=== PATIENT | male | born 1970 | race Caucasian/White ===

== ENCOUNTER → 2016-11-30 | Outpatient (CLI) | payer BC ==
--- NOTE | 2016-11-30 18:39 | CT ---
History ankle pain. Comparison none. TECHNIQUE: Multiple axial sections were obtained from the distal tibia to the bottom of the calcaneus with no co ntrast. FINDINGS: There is hypertrophic spurring of the distal fibula as well as the medial malleolus. There is spurrin g at the anterior and posterior malleolus. There is minimal sclerosis and subchondral cystic change i n the medial dome of the talus. I see no fracture line. The subtalar joint is intact. There are moder ate plantar and Achilles calcaneal spurs. Talonavicular joint appears normal. There is some mild spur ring at the navicular cuneiform joint. I see no focal bone destruction. There is soft tissue calcific ation anterior to the ankle joint. CONCLUSION: Osteoarthritis in the ankle joint with hypertrophic spur formation. 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 Large Achilles and plantar calcaneal spurs. No a cute bony abnormality seen.
== END | disposition home or self-care (01) ==
LOC: RADCTMAIN 16:36
PROVIDERS: ATTEND Orthopaedic Surgery
DX: M19.071 Primary osteoarthritis, right ankle and foot (principal); D48.0 Neoplasm of uncertain behavior of bone and articular cartilage; M77.31 Calcaneal spur, right foot

== ENCOUNTER 2017-10-02 15:14 | Inpatient (IN) | payer BC ==
--- NOTE | 2017-10-02 15:42 | ED ---
General Adult HPI - General Chief complaint: Psychiatric Symptoms Stated complaint: Suicidal Time Seen by Provider: 10/02/17 15:20 Source: patient, RN notes reviewed Mode of arrival: ambulatory Limitations: no limitations - History of Present Illness Initial comments: This is a 47 her old male who presents emergency Department complaining of being very depressed and having suicidal thoughts over the last couple of weeks that have worsened. Patient states the stress is getting Cesar afraid he might act upon the suicidal thoughts. Patient states he once attempted suicide when he is a teenager but not since. Patient states he did go on antidepressants for about a year but has not been on them for a couple of years. Patient states pressure work and pressure at home with the finances has increased his depression. Patient states is getting so stressed she's not sure he can handle the pressure. Patient denies any physical complaints today. Patient states he does smoke. Patient denies headache patient denies numbness weakness. Patient denies lightheadedness dizziness or near syncopal episode. Patient denies any chest pain difficulty breathing or shortness of breath. Patient denies abdominal pain patient denies nausea vomiting diarrhea. Patient denies any recent injury or trauma. She denies any fever chills or cough. - Related Data Home Medications Medication Instructions Recorded Confirmed No Known Home Medications [No 10/02/17 10/02/17 Known Home Medications] Allergies Allergy/AdvReac Type Severity Reaction Status Date / Time No Known Allergies Allergy Verified 10/02/17 15:56 Review of Systems ROS Statement: Those systems with pertinent positive or pertinent negative responses have been documented in the HPI. ROS Other: All systems not noted in ROS Statement are negative. Past Medical History Past Medical History: GERD/Reflux, Hyperlipidemia, Hypertension, Syncope Additional Past Medical History / Comment(s): 06/14/15 Pt presented to [facility] ER with dizziness, lightheaded since yesterday. Driving to work today he started having tingling and discomfort L arm and mild ches discomfort below L breast. Other HX: high cholesterol but numbers have improved and pt is now off medication for this, pt states he has not been taking his blood pressure medication as he should, black out spells last episode 2008, restless leg syndrome, 01/13/15 echo showed mild mitral and tri regurg, moderate concentric L ventricular hypertrophy, L ventricular systolic function normal with EF 55-60%. History of Any Multi-Drug Resistant Organisms: None Reported Past Surgical History: Heart Catheterization, Orthopedic Surgery Additional Past Surgical History / Comment(s): ccath yrs ago-normal, vasectomy, Rt arm tendon reattached as child, rt ankle fx with surgery Past Anesthesia/Blood Transfusion Reactions: No Reported Reaction Past Psychological History: Depression Smoking Status: Current every day smoker Past Alcohol Use History: None Reported Past Drug Use History: None Reported - Past Family History Father History Unknown: Yes Mother Family Medical History: Coronary Artery Disease (CAD), Myocardial Infarction (PA ) Additional Family Medical History / Comment(s): Mother of a PA at age 61 yrs. General Exam - General Exam Comments Initial Comments: GENERAL: Patient is well-developed and well-nourished. Patient is nontoxic and well- hydrated and is in no acute distress. ENT: Neck is soft and supple. No significant lymphadenopathy is noted. Neck has full range of motion without eliciting any pain. EYES: The sclera were anicteric and conjunctiva were pink and moist. Extraocular movements were intact and pupils were equal round and reactive to light. Eyelids were unremarkable. PULMONARY: Unlabored respirations. Good breath sounds bilaterally. No audible rales rhonchi or wheezing was noted. CARDIOVASCULAR: There is a regular rate and rhythm without any murmurs gallops or rubs. ABDOMEN: Soft and nontender with normal bowel sounds. SKIN: Skin is clear with no lesions or rashes and otherwise unremarkable. NEUROLOGIC: Patient is alert and oriented x3. Cranial nerves II through XII are grossly intact. Motor and sensory are also intact. Normal speech, volume and content. Symmetrical smile. MUSCULOSKELETAL: Normal extremities with adequate strength and full range of motion. No lower extremity swelling or edema. No calf tenderness. LYMPHATICS: No significant lymphadenopathy is noted PSYCHIATRIC: Patient states he's having suicidal thoughts. Patient states he's very depressed and doesn't see a way out of his present situation. Limitations: no limitations Course Vital Signs 10/02/17 15:21 Temperature 98.6 F Pulse Rate 92 Respiratory 18 Rate Blood Pressure 181/99 O2 Sat by Pulse 100 Oximetry Medical Decision Making - Medical Decision Making EPS came down to evaluate the patient the patient signed in and they accepted him to the floor. - Lab Data Lab Results 10/02/17 Range/Units 15:47 Urine Opiates Screen Not Detected (NotDetected) Ur Oxycodone Screen Not Detected (NotDetected) Urine Methadone Screen Not Detected (NotDetected) Ur Propoxyphene Screen Not Detected (NotDetected) Ur Barbiturates Screen Not Detected (NotDetected) U Tricyclic Antidepress Not Detected (NotDetected) Ur Phencyclidine Scrn Not Detected (NotDetected) Ur Amphetamines Screen Not Detected (NotDetected) U Methamphetamines Scrn Not Detected (NotDetected) U Benzodiazepines Scrn Not Detected (NotDetected) Urine Cocaine Screen Not Detected (NotDetected) U Marijuana (THC) Screen Not Detected (NotDetected) Disposition Clinical Impression: Depression, Suicidal ideation Disposition: ADMITTED IP TO THIS HOSP Referrals: Magnus Nj DO [Primary Care Provider] - 1-2 days Time of Disposition: 18:04
[2017-10-02 16:14] LABS: Amphetamine Screen,Urine Not Detected (NotDetected); Barbiturate Screen,Urine Not Detected (NotDetected); Benzodiazepines Screen,Urine Not Detected (NotDetected); Cocaine Screen,Urine Not Detected (NotDetected); Methadone Screen, Urine Not Detected (NotDetected); Opiate Screen,Urine Not Detected (NotDetected); Oxycodone Screen, Urine Not Detected (NotDetected); Phencyclidine Screen,Urine Not Detected (NotDetected); Tricyclic Antidepressant,Urine Not Detected (NotDetected); Urn Cannabinoid Scrn Not Detected (NotDetected)
[2017-10-02] MEDS ORDERED: cloNIDine HCL 0.2 MG TAB PO STA (18:19)
[2017-10-02] MEDS ORDERED: LORazepam 1 MG TAB PO PRN (18:41)
[2017-10-02] MEDS ORDERED: ACETAMINOPHEN TAB 325 MG TAB PO PRN (18:41)
[2017-10-02] MEDS ORDERED: MAG HYDROX/AL HYDROX/SIMETH 30 ML CUP PO PRN (18:41)
[2017-10-02] MEDS ORDERED: MAGNESIUM HYDROXIDE 2,400 MG/10 ML CUP PO PRN (18:41)
[2017-10-02] MEDS ORDERED: LORazepam 2 MG/ML INJ IM PRN (18:44)
[2017-10-02] MEDS ORDERED: traZODone HCL 100 MG TAB PO PRN (19:00)
[2017-10-02] MEDS: LISINOPRIL-HCTZ 10-12.5 MG 1 EACH TAB PO SCH (21:43)
--- NOTE | 2017-10-02 21:55 | CONS ---
CONSULTATION DATE OF CONSULTATION: 10/02/2017. REASON FOR CONSULTATION: Medical management requested by Dr. Butler. CONSULTATION: This is a 47-year-old patient of Dr. Nj whose chronic stable medical conditions include GERD, hypertensive heart disease, restless leg syndrome. The patient had hyperlipidemia but lost some weight and got off the medications. The patient presents with increasing depression, suicidal ideation, not wanting to live. Decided to present to the ER. The patient does not have much of an appetite. Does not sleep too well and is admitted for further evaluation with evaluation. The patient's home medications currently not listed. The patient is gainfully employed and is a smoker. REVIEW OF SYSTEMS: CONSTITUTIONAL: None. HEENT: None. Respiratory: None. Cardiovascular: None. Gastrointestinal: None. Musculoskeletal: None. Dermatological, hematologic, lymphatic: None. Psychiatry: Depression. Neurological: Restless legs syndrome. PAST MEDICAL HISTORY: GERD, hypertensive heart disease, hypertension, restless leg syndrome and depression. PAST SURGICAL HISTORY: Cardiac catheterization years ago, vasectomy, right arm tendon reattached as a child, right ankle fracture with surgery. PSYCH HISTORY: Depression. SOCIAL HISTORY: . Smokes a pack and half for close to 30 years. Denies Any alcohol use or recreational drugs. 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 FAMILY HISTORY: Coronary artery disease. Mother at the age of 61. HOME MEDICATIONS: List unavailable. ALLERGIES: None. PHYSICAL EXAMINATION: VITAL SIGNS: Temperature 98, pulse 73, respirations 16, blood pressure 123/92, pulse ox 95% on room air. GENERAL APPEARANCE: Well built, BMI of 41.7, lying in bed, tired appearing. EYES: Pupils equal. Conjunctivae normal. HEENT: External appearance of nose and ears normal. Oral cavity normal. NECK: JVD not raised. Mass not palpable. RESPIRATORY: Effort normal. LUNGS: Fair entry. CARDIOVASCULAR: 1st and second sounds normal. No edema. ABDOMEN: Soft, nontender. Liver and spleen not palpable. LYMPHATICS: No lymph nodes palpable in the neck and axilla. PSYCHIATRY: Alert and oriented x3. Mood and affect depressed-appearing. NEUROLOGICAL: Pupils equal. Cranial nerves grossly intact. Power and sensation grossly intact. INVESTIGATIONS: Urine drug screen negative. ASSESSMENT: 1. Hypertensive heart disease. 2. Essential hypertension, uncontrolled. 3. Major depression with suicidal ideation. 4. Restless leg syndrome. 5. Morbid obesity BMI 41.7. 6. Chronic nicotine dependence, patient is a cigarette smoker. PLAN: At this point, we will start the patient on lisinopril, hydrochlorothiazide 1 tablet twice a day. If restless leg syndrome becomes an issue, we will add some Requip. The patient should see a dietitian when he leaves from here for weight loss measures. The patient is advised against smoking and will be given a nicotine patch. Thank you Dr. Butler. Copy to Dr. Nj. MERI / [place]: [id number] /
[2017-10-03] MEDS: NICOTINE 21MG/24HR PATCH TRANSDERM SCH (08:26)
[2017-10-03] MEDS: LISINOPRIL-HCTZ 10-12.5 MG 1 EACH TAB PO SCH ×2 (08:26→21:43)
[2017-10-03 08:48] LABS: Basophils % (A) 1 %; Eosinophils # (A) 0.2 k/uL (0-0.7); Eosinophils % (A) 2 %; HCT 47.1 % (39.0-53.0); HGB 16.3 gm/dL (13.0-17.5); Lymphocytes # (A) 1.6 k/uL (1.0-4.8); Lymphocytes % (A) 23 %; MCH 31.8 pg (25.0-35.0); MCHC 34.7 g/dL (31.0-37.0); MCV 91.8 fL (80.0-100.0); Mean Platelet Volume 6.4; Monocytes # (A) 0.3 k/uL (0-1.0); Monocytes % (A) 4 %; Neutrophils # (A) 4.7 k/uL (1.3-7.7); Neutrophils % (A) 68 %; Platelet Count 178 k/uL (150-450); RBC 5.13 m/uL (4.30-5.90); RDW 13.3 % (11.5-15.5); WBC 6.8 k/uL (3.8-10.6)
[2017-10-03 09:11] LABS: ALT 46 U/L (21-72); AST 23 U/L (17-59); Albumin 4.3 g/dL (3.5-5.0); Alkaline Phosphatase 123 U/L (38-126); Anion Gap 12 mmol/L; Blood Urea Nitrogen 10 mg/dL (9-20); Calcium 9.5 mg/dL (8.4-10.2); Carbon Dioxide 29 mmol/L (22-30); Chloride 100 mmol/L (98-107); Glucose 122 mg/dL (74-99); Potassium 4.1 mmol/L (3.5-5.1); Sodium 141 mmol/L (137-145); Total Bilirubin 0.8 mg/dL (0.2-1.3); Total Protein 7.1 g/dL (6.3-8.2)
[2017-10-03 09:38] VITALS: BMI 41.7
[2017-10-03] MEDS: VENLAFAXINE HCL ER 75 MG CAP PO SCH (10:07)
--- NOTE | 2017-10-03 12:23 | P.HP ---
Psychiatric H&P - . H&P Date: 10/03/17 History & Physical: IDENTIFYING DATA: The patient is a 47-year-old male admitted to the psychiatric unit voluntarily with complaints of depression and suicidal ideation HISTORY OF PRESENT ILLNESS: He described increasing feelings depression over the last several weeks culminating in difficulty functioning at work and increasing thoughts of suicide. He stated that he felt hopeless and helpless and had thoughts of using his gun to shoot himself. He confided his feelings and his thoughts to his the day before admission. He called his primary physician who referred him to our emergency department for a mental health assessment. He described classic symptoms of depression including depressed mood, feelings of guilt, thoughts of suicide, insomnia (early, middle and late), loss of interest in activities, psychomotor retardation, loss of energy and weight loss (he stated that his weight has decreased over unspecified time from 305 pounds to 274 pounds). He denied psychotic symptoms such as auditory, visual or olfactory hallucinations, ideas of reference, thought insertion etc. He denied significant anxiety symptoms including agitation, psychic anxiety and somatic anxiety. He denied gastrointestinal somatic symptoms. He acknowledges that he is depressed and recognized the need for treatment. He denied use of alcohol or drugs. He denied signs or symptoms suggestive of aziza or hypomania. He attributed depression to social stressors. He described financial problems that resulted from sick leave early in 2017. He had injured his ankle and required surgery. He has long-term disability through work but only provided 40 % of his salary. He recently learned that his federal tax return is under audit (he stated that he and his anticipated the tax refund to help cover some of the debt they incurred during his disability). He also complained about difficulties at work. 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 He denied problems in his marriage, his family or his children. On the Jaime Rating Scale for Depression his total score was 22 consistent with moderately severe symptoms of depression. PAST PSYCHIATRIC HISTORY: He denied prior psychiatric hospitalizations or outpatient mental health treatment. He described a apparent suicide attempt when he was 19 years old by overdose of Tegretol. He received emergency treatment in the ER but did not obtain mental health services. He experienced a depressive episode 3 years ago following the of his mother. His primary care provider prescribes sertraline. He took the medication for about one year and described ambivalent feelings about its effectiveness. PAST MEDICAL HISTORY: He has a history of GERD, hyperlipidemia and hypertension. ALLERGIES: NO KNOWN DRUG ALLERGIES. SUBSTANCE USE HISTORY: He denied use of alcohol or drugs. He denied a history of problems with alcohol or drugs. He has never participated in a substance abuse treatment program and denied family or friends have complained to him about his alcohol use. Tobacco use: He smokes between one half and one pack of cigarettes per day FAMILY PSYCHIATRIC/SUBSTANCE USE HISTORY: He described a strong family history of mood disorder. His mother, sister and brother have been treated for depression. 2 paternal uncles by suicide. LEGAL HISTORY: He denied history of legal problems. SOCIAL HISTORY: His born and raised in [place] by his mother and stepfather. His parents when he was 3 years old. He completed high school. He has been for 23 years. They have 4 children 3 of whom are in the household. 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 MENTAL STATUS EXAM: He presented as a casually groomed middle-aged male who looked younger than his stated age. He maintained eye contact and attended to the interview. He had poor group home but no prominent physical abnormalities. He showed psychomotor retardation but no abnormal movements. His gait was slow but steady. His speech was spontaneous with decreased rate, rhythm and volume. He had no articulation difficulties. His affect was depressed and not reactive. He denied current suicidal ideation or wishes. He denied homicidal ideation. He describes such depressive cognitions as hopelessness, helplessness and worthlessness. He ruminated about his financial and employment related problems. He did not express ideas of reference, paranoid ideation or delusional thoughts. His thinking was abstract and his associations were coherent and logical. He did not demonstrate perseverations, neologisms or blocking. He denied hallucinations and did not appear to be responding to internal stimuli. Global impression of intellect is average. He is aware of his illness and need for treatment.. STRENGTHS: Stable employment, stable housing, supportive family, good physical health. WEAKNESSES: Employment and financial stresses. IMPRESSION: He has a 47-year-old male who has a family history and personal history of depression. He presented with signs and symptoms consistent with major depressive disorder that appears to develop in the context of financial and employment stress. He had thoughts of suicide that led to his presentation to our emergency department but currently denied thoughts, intent or plan. There is no evidence of psychosis and he denied a history suggestive of aziza or hypomania. He has no history of the use of alcohol or drugs. He should be treated on an inpatient basis with a combination of psychopharmacology and multimodal therapy. He would benefit from continued outpatient mental health treatment at discharge. PRINCIPLE DIAGNOSIS: Major depressive disorder recurrent moderate, tobacco use disorder RECOMMENDATION: Admitted to the inpatient psychiatric unit due to the severity of depressive symptoms and history of suicidal ideation. Consult medicine for initial physical exam. Social work to complete initial psychosocial assessment , arrange a family meeting and have the patient's remove his hand gun from the home. Begin venlafaxine ex are 75 mg daily and titrated according to clinical response and tolerance. Encourage participation in therapeutic groups and activities. Evaluate clinical status and response to treatment daily basis. Allergies Allergy/AdvReac Type Severity Reaction Status Date / Time No Known Allergies Allergy Verified 10/02/17 21:46 Vital Signs Temp 97.7 F 10/03/17 06:26 Pulse 63 10/03/17 06:26 Resp 16 10/03/17 06:26 BP 118/66 10/03/17 06:26 Pulse Ox 95 10/02/17 18:18 Intake & Output 10/02/17 10/03/17 10/03/17 18:59 06:59 18:59 Weight 138.346 kg 124.454 kg 124.454 kg Laboratory Last Values WBC 6.8 k/uL (3.8-10.6) 10/03/17 08: RBC 5.13 m/uL (4.30-5.90) 10/03/17 08:27 Hgb 16.3 gm/dL (13.0-17.5) 10/03/17 08:27 Hct 47.1 % (39.0-53.0) 10/03/17 08:27 MCV 91.8 fL (80.0-100.0) 10/03/17 08:27 MCH 31.8 pg (25.0-35.0) 10/03/17 08:27 MCHC 34.7 g/dL (31.0-37.0) 10/03/17 08:27 RDW 13.3 % (11.5-15.5) 10/03/17 08:27 Plt Count 178 k/uL (150-450) 10/03/17 08:27 Neutrophils % 68 % 10/03/17 08:27 Lymphocytes % 23 % 10/03/17 08:27 Monocytes % 4 % 10/03/17 08:27 Eosinophils % 2 % 10/03/17 08:27 Basophils % 1 % 10/03/17 08:27 Neutrophils # 4.7 k/uL (1.3-7.7) 10/03/17 08:27 Lymphocytes # 1.6 k/uL (1.0-4.8) 10/03/17 08:27 Monocytes # 0.3 k/uL (0-1.0) 10/03/17 08:27 Eosinophils # 0.2 k/uL (0-0.7) 10/03/17 08: Basophils # 0.0 k/uL (0-0.2) 10/03/17 08:27 Sodium 141 mmol/L (137-145) 10/03/17 08:27 Potassium 4.1 mmol/L (3.5-5.1) 10/03/17 08:27 Chloride 100 mmol/L (98-107) 10/03/17 08:27 Carbon Dioxide 29 mmol/L (22-30) 10/03/17 08:27 Anion Gap 12 mmol/L 10/03/17 08:27 BUN 10 mg/dL (9-20) 10/03/17 08:27 Creatinine 1.00 mg/dL (0.66-1.25) 10/03/17 08:27 Est GFR (CKD-EPI)AfAm >90 (>60 ml/min/1.73 sqM) 10/03/17 08:27 Est GFR (CKD-EPI)NonAf 90 (>60 ml/min/1.73 sqM) 10/03/17 08:27 Glucose 122 mg/dL (74-99) H 10/03/17 08:27 Calcium 9.5 mg/dL (8.4-10.2) 10/03/17 08:27 Total Bilirubin 0.8 mg/dL (0.2-1.3) 10/03/17 08:27 AST 23 U/L (17-59) 10/03/17 08:27 ALT 46 U/L (21-72) 10/03/17 08:27 Alkaline Phosphatase 123 U/L (38-126) 10/03/17 08:27 Total Protein 7.1 g/dL (6.3-8.2) 10/03/17 08:27 Albumin 4.3 g/dL (3.5-5.0) 10/03/17 08:27 TSH 2.510 mIU/L (0.465-4.680) 10/03/17 08:27 Urine Opiates Screen Not Detected (NotDetected) 10/02/17 15:47 Ur Oxycodone Screen Not Detected (NotDetected) 10/02/17 15:47 Urine Methadone Screen Not Detected (NotDetected) 10/02/17 15:47 Ur Propoxyphene Screen Not Detected (NotDetected) 10/02/17 15:47 Ur Barbiturates Screen Not Detected (NotDetected) 10/02/17 15:47 U Tricyclic Antidepress Not Detected (NotDetected) 10/02/17 15:47 Ur Phencyclidine Scrn Not Detected (NotDetected) 10/02/17 15:47 Ur Amphetamines Screen Not Detected (NotDetected) 10/02/17 15:47 U Methamphetamines Scrn Not Detected (NotDetected) 10/02/17 15:47 U Benzodiazepines Scrn Not Detected (NotDetected) 10/02/17 15:47 Urine Cocaine Screen Not Detected (NotDetected) 10/02/17 15:47 U Marijuana (THC) Screen Not Detected (NotDetected) 10/02/17 15:47 10/03/17 12:01
[2017-10-04] MEDS: VENLAFAXINE HCL ER 75 MG CAP PO SCH (09:21)
[2017-10-04] MEDS: LISINOPRIL-HCTZ 10-12.5 MG 1 EACH TAB PO SCH ×2 (09:21→21:10)
[2017-10-04] MEDS: NICOTINE 21MG/24HR PATCH TRANSDERM SCH (09:21)
--- NOTE | 2017-10-04 11:31 | P.PN ---
Subjective Progress Note Date: 10/04/17 Principal diagnosis: Major depressive disorder recurrent moderate, suicidal ideation, tobacco use disorder I reviewed the medical record, interviewed the patient and discussed his treatment and treatment plan during team meeting. He was anxious to be discharged and return home. He has talked in several group settings about how he loves his family and misses being with them. He denied current thoughts of or suicide. He denied wishes. He described continued feelings of depression but denied feeling hopeless or helpless. He is interested in outpatient mental health services and requested her systems with obtaining an appointment with a therapist. We talked about the handgun. Although he asked his to "hide" the handgun I recommended that the handgun. He moved from the home. sheet metal layout worker agreed to speak with his about removing the handgun. Objective - Vital Signs Vital signs: Vital Signs Temp 97.9 F 10/04/17 02:45 Pulse 95 10/04/17 09:26 Resp 20 10/04/17 09:26 BP 133/74 10/04/17 09:26 Pulse Ox 95 10/02/17 18:18 Intake & Output 10/03/17 10/04/17 10/04/17 18:59 06:59 18:59 Weight 124.454 kg - Psychiatric Psychiatric Comment(s): He presented as a moderately obese middle-aged male who looked younger than stated age. He is pleasant on approach, attempted to interview and made eye contact. He had poor dentition but otherwise no prominent physical abnormalities. He had a blunted but bright facial expression. He was alert and oriented to person, place and time. He showed slight psychomotor retardation but no abnormal movements. Speech was spontaneous with slight decrease in rate and rhythm. He had no articulation difficulties. His affect was depressed but reactive. He denied current suicidal ideation or wishes. He denied homicidal ideation. He denied feeling hopeless or helpless. He denied ideas reference, paranoid ideation or delusions. His thinking was abstract and associations were coherent and logical. He denied hallucinations and did not appear to be responding to internal stimuli. - Labs CBC & Chem 7: 10/03/17 08:27 10/03/17 08:27 Assessment and Plan (1) Depression Current Visit: Yes Status: Acute Priority: Medium Code(s): F32.9 - MAJOR DEPRESSIVE DISORDER, SINGLE EPISODE, UNSPECIFIED SNOMED Code(s): 80645012 (2) Suicidal ideation Current Visit: Yes Status: Acute Code(s): R45.851 - SUICIDAL IDEATIONS SNOMED Code(s): 4111870 Plan: Continue inpatient hospitalization to monitor response to treatment, a removal of anger from home and arrange for aftercare services. Continue Effexor XL 75 mg for 2 more days and increase to 150 mg daily. sheet metal layout worker to speak with about removing handgun from home. Encourage continued participation in therapeutic groups and activities. Evaluate clinical status response to treatment daily basis. Anticipate discharge on 10/07/2017
[2017-10-05] MEDS: LISINOPRIL-HCTZ 10-12.5 MG 1 EACH TAB PO SCH ×2 (08:48→20:46)
[2017-10-05 16:58] LABS: Appearance,Urine Clear (Clear); Bilirubin,Urine Negative (Negative); Blood,Urine Negative (Negative); Color,Urine Light Yellow; Glucose,Urine (UA) Negative (Negative); Ketones,Urine Negative (Negative); Leukocyte Esterase,Urine Negative (Negative); Nitrite,Urine Negative (Negative); Protein,Urine Negative (Negative); Specific Gravity,Urine 1.007 (1.001-1.035); Urobilinogen,Urine <2.0 mg/dL (<2.0)
--- NOTE | 2017-10-05 20:23 | P.PN ---
Progress Note - Text Progress Note Date: 10/05/17 Patient reports his has visited him today. Reports feeling much better after he had talked to his . He stated he loves his family and they are his world. He doesn't know the name of the medication he takes for depression. He however states he has been helping him feel better. He reports good sleep and appetite. He reports going to all his groups. He stated he was able to express himself in the groups and feels good about it. no irritability anger or agitation reported. Stated he no longer has suicidal ideations. 47-year-old male. He appears his stated age. He is obese. No abnormal movements noted. He maintains good eye contact. His speech is normal rate tone and volume. His mood is reported as happy affect bright. He denies current auditory or visual hallucinations. He does not express paranoid ideations,. Denies current suicidal or homicidal ideations. He is alert and oriented 4. Major depression recurrent moderate type Continue Effexor XL 75 mg. increase to 150 mg daily from 10/07/17 onwards Monitor for symptoms poultry husbandry worker to speak with about removing handgun from home. Encourage continued participation in therapeutic groups and activities.
[2017-10-06] MEDS: VENLAFAXINE HCL ER 75 MG CAP PO SCH (08:50)
[2017-10-06] MEDS: LISINOPRIL-HCTZ 10-12.5 MG 1 EACH TAB PO SCH ×2 (08:51→20:10)
--- NOTE | 2017-10-06 18:55 | P.PN ---
Progress Note - Text Progress Note Date: 10/06/17 Reports doing well. He reports he is able to express himself during the groups. Stated his will be visiting him tonight and felt very happy about it. rePorts good sleep and appetite. His current symptoms of depression. He reports being compliant with his medications. No side effects reported. He is excited about the family meeting tomorrow morning at 8:30. 47-year-old male. He is obese. Appears in fair grooming and hygiene.. He is pleasant and cooperative. He intends good eye contact. No abnormal movements noted. Each and thought process is linear and goal directed. Mood is reported as good and affect appropriate. He denies current auditory or visual hallucinations. Denies paranoia. Alert and oriented 4. Sight and judgment have improved. Continue Effexor Monitor for symptoms Family meeting tomorrow at 8.30 Am. Encourage continued participation in therapeutic groups and activities. Social work to coordinate the discharge plan after the family meeting.
[2017-10-06 20:11] VITALS: RESP 16
[2017-10-07 06:49] VITALS: BP 133/70; PULSE 73; TEMP 98.1
[2017-10-07] MEDS: LISINOPRIL-HCTZ 10-12.5 MG 1 EACH TAB PO SCH (08:17)
[2017-10-07] MEDS: VENLAFAXINE HCL ER 75 MG CAP PO SCH (08:18)
--- NOTE | 2017-10-07 11:15 | P.DS ---
Providers Date of admission: 10/02/17 18:34 Attending physician: Amor Butler MD Consults: 10/02/17 18:41 Consult Physician Routine Consulting Provider: Jax Weir Consult Reason/Comments: Medical management Do you want consulting provider notified?: Yes Primary care physician: Magnus Nj - Discharge Diagnosis(es) (1) Depression He patient is a 47-year-old male admitted to the psychiatric unit voluntarily with complaints of depression and suicidal ideation He described increasing feelings depression over the last several weeks culminating in difficulty functioning at work and increasing thoughts of suicide. He stated that he felt hopeless and helpless and had thoughts of using his gun to shoot himself. He confided his feelings and his thoughts to his the day before admission. He called his primary physician who referred him to our emergency department for a mental health assessment. He described classic symptoms of depression including depressed mood, feelings of guilt, thoughts of suicide, insomnia (early, middle and late), loss of interest in activities, psychomotor retardation, loss of energy and weight loss (he stated that his weight has decreased over unspecified time from 305 pounds to 274 pounds). He denied psychotic symptoms such as auditory, visual or olfactory hallucinations, ideas of reference, thought insertion etc. He denied significant anxiety symptoms including agitation, psychic anxiety and somatic anxiety. He denied gastrointestinal somatic symptoms. He acknowledges that he is depressed and recognized the need for treatment. He denied use of alcohol or drugs. He denied signs or symptoms suggestive of aziza or hypomania. He attributed depression to social stressors. He described financial problems that resulted from sick leave early in 2017. He had injured his ankle and required surgery. He has long-term disability through work but only provided 40 % of his salary. He recently learned that his federal tax return is under audit (he stated that he and his anticipated the tax refund to help cover some of the debt they incurred during his disability). He also complained about difficulties at work. 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 He denied problems in his marriage, his family or his children. On the Jaime Rating Scale for Depression his total score was 22 consistent with moderately severe symptoms of depression. Current Visit: Yes Status: Acute Priority: Medium (2) Suicidal ideation Current Visit: Yes Status: Acute Hospital Course: Admitted him to the psychiatric unit voluntarily under the care of this account underwriter. We provided a comprehensive biopsychosocial assessment. The diet consultant pediatrics hospitalist completed the initial physical examination and medical history. structural worker completed a psychosocial assessment, supervised family meeting and coordinated disposition and aftercare. The patient's depression was treated with venlafaxine XR titrated to 150 mg per day. She denied side effects and reported a dramatic decrease in the severity of the depressive symptoms. He had intermittent insomnia which she took trazodone 100 mg at bedtime. He participated in therapeutic groups and activities. He posed no management problem and required no episodes of seclusion or restraint. During the family meeting the group social worker confirmed that his had removed his handgun from the home. She arranged follow-up and aftercare through [facility] outpatient mental health clinic. At the time of discharge she presented as a casually groomed moderate obese male who was pleasant on approach. We had a bright facial expression. He was alert and oriented to person, place and time. He showed no abnormality of psychomotor activity. His gait was normal. His speech was spontaneous with normal rate, rhythm and volume. He had no articulation difficulties. His affect was blunted but stable and appropriate. He denied suicidal ideation or wishes. He denied homicidal ideation. He denied such depressive cognitions as hopelessness, helplessness and worthlessness. He denied ideas of reference, paranoid ideation and did not express delusional thoughts. His thinking was abstract and associations were coherent, logical and goal directed. He denied hallucinations and did not appear to be responding towards to internal stimuli. Patient Condition at Discharge: Stable Plan - Discharge Summary Discharge Rx Participant: No New Discharge Prescriptions: New Lisinopril-Hctz 10-12.5 mg [Zestoretic 10-12.5] 1 each PO BID tab Venlafaxine HCl ER [Effexor XR] 150 mg PO DAILY #30 cap.er.24h Discharge Medication List Lisinopril-Hctz 10-12.5 mg [Zestoretic 10-12.5] 1 each PO BID tab 10/07/17 [Rx] Venlafaxine HCl ER [Effexor XR] 150 mg PO DAILY #30 cap.er.24h 10/07/17 [Rx] Follow up Appointment(s)/Referral(s): [facility] [Outside] - 10/11/17 9:00 am (Follow up therapy appointment with [facility] 10/11/17 @ 9:00am) Magnus Nj DO [Primary Care Provider] - 1-2 days Patient Instructions/Handouts: How to Stop Smoking (GEN) Activity/Diet/Wound Care/Special Instructions: Keep your follow up appointments as scheduled. Continue medications as prescribed. No alcohol or street drugs. No access to guns or weapons. Crisis line if needed . Discharge Disposition: HOME SELF-CARE
== END 2017-10-07 11:46 | disposition home or self-care (01) | DRG 885 ==
LOC: EC 15:14 → 3MHU 18:34
PROVIDERS: ADMIT Psychiatry & Neurology Psychiatry; ATTEND Psychiatry & Neurology Psychiatry
DX: F33.1 Major depressive disorder, recurrent, moderate (principal); R45.851 Suicidal ideations; Z68.41 Body mass index [BMI] 40.0-44.9, adult; K21.9 Gastro-esophageal reflux disease without esophagitis; E78.5 Hyperlipidemia, unspecified; E78.00 Pure hypercholesterolemia, unspecified; E66.01 Morbid (severe) obesity due to excess calories; F17.210 Nicotine dependence, cigarettes, uncomplicated; G25.81 Restless legs syndrome; I11.9 Hypertensive heart disease without heart failure; G47.00 Insomnia, unspecified; Z91.5 Personal history of self-harm; Z82.49 Family history of ischemic heart disease and other diseases of the circulatory system; Z59.8 Other problems related to housing and economic circumstances; Z81.8 Family history of other mental and behavioral disorders
CPT/HCPCS: 80053; 80306; 81003; 82075; 84443; 85025; 99285

== ENCOUNTER 2018-09-17 22:41 | Emergency (ER) | payer BC ==
[2018-09-17 22:48] VITALS: RESP 18; TEMP 98.7
[2018-09-17 23:16] LABS: Basophils % (A) 0 %; Eosinophils # (A) 0.3 k/uL (0-0.7); Eosinophils % (A) 4 %; HCT 46.8 % (39.0-53.0); HGB 15.6 gm/dL (13.0-17.5); Lymphocytes % (A) 25 %; MCH 31.5 pg (25.0-35.0); MCHC 33.3 g/dL (31.0-37.0); MCV 94.5 fL (80.0-100.0); Mean Platelet Volume 6.7; Monocytes # (A) 0.4 k/uL (0-1.0); Monocytes % (A) 5 %; Neutrophils # (A) 5.1 k/uL (1.3-7.7); Neutrophils % (A) 65 %; Platelet Count 183 k/uL (150-450); RBC 4.95 m/uL (4.30-5.90); RDW 13.6 % (11.5-15.5)
[2018-09-17 23:17] LABS: Appearance,Urine Clear (Clear); Bacteria,Urine Rare /hpf; Bilirubin,Urine Negative (Negative); Blood,Urine Small (Negative); Color,Urine Yellow; Glucose,Urine (UA) Negative (Negative); Ketones,Urine Negative (Negative); Leukocyte Esterase,Urine Negative (Negative); Mucus,Urine Rare /hpf; Nitrite,Urine Negative (Negative); PH, Urine 5.5 (5.0-8.0); Protein,Urine Negative (Negative); RBC,Urine 2 /hpf (0-5); Specific Gravity,Urine 1.026 (1.001-1.035); Squamous Epithelial Cell,Urine <1 /hpf (0-4); Urobilinogen,Urine <2.0 mg/dL (<2.0); WBC,Urine <1 /hpf (0-5)
[2018-09-17 23:24] LABS: ALT 45 U/L (21-72); AST 25 U/L (17-59); Albumin 4.2 g/dL (3.5-5.0); Alkaline Phosphatase 117 U/L (38-126); Amylase 95 U/L (30-110); Anion Gap 6 mmol/L; Blood Urea Nitrogen 19 mg/dL (9-20); Calcium 9.5 mg/dL (8.4-10.2); Carbon Dioxide 25 mmol/L (22-30); Chloride 109 mmol/L (98-107); Glucose 122 mg/dL (74-99); Lipase 121 U/L (23-300); Potassium 4.7 mmol/L (3.5-5.1); Sodium 140 mmol/L (137-145); Total Bilirubin 0.4 mg/dL (0.2-1.3); Total Protein 7.2 g/dL (6.3-8.2)
--- NOTE | 2018-09-17 23:55 | ED ---
Abdominal Pain HPI - General Chief Complaint: Abdominal Pain Stated Complaint: Rt Flank Pain Time Seen by Provider: 09/17/18 23:00 Source: patient Mode of arrival: ambulatory Limitations: no limitations - History of Present Illness Initial Comments: This patient's 48-year-old man who presents with complaint of right flank pain that had developed yesterday in the afternoon. The patient indicates that it is stabbing, somewhat colicky in nature, and can be quite severe though it is moderate now. He has not noted worsening or relieving factors. There was no radiation. No symptoms to the groin or testicles. He had been having a little bit of urinary frequency. Patient has not noted any other symptoms MD Complaint: flank pain Onset/Timin -: days(s) Location: R flank Radiation: none Migration to: no migration Severity: moderate Quality: stabbing Consistency: colicky Improves With: nothing Worsens With: nothing Associated Symptoms: other (Frequency) - Related Data Home Medications Medication Instructions Recorded Confirmed Ibuprofen/Pseudoephedrine HCl 1 tab PO Q12H 09/17/18 09/17/18 [Advil Cold & Sinus Caplet] Losartan-Hctz 50-12.5 mg [Hyzaar 1 tab PO DAILY 09/17/18 09/17/18 50-12.5] Venlafaxine HCl ER [Effexor XR] 150 mg PO DAILY 09/17/18 09/17/18 rOPINIRole HCL [Requip] 1 - 2 tab PO HS 09/17/18 09/17/18 Allergies Allergy/AdvReac Type Severity Reaction Status Date / Time No Known Allergies Allergy Verified 09/17/18 22:56 Review of Systems ROS Statement: Those systems with pertinent positive or pertinent negative responses have been documented in the HPI. ROS Other: All systems not noted in ROS Statement are negative. Constitutional: Denies: fever, chills, weakness Respiratory: Denies: cough, dyspnea Cardiovascular: Denies: chest pain, palpitations, edema, syncope Gastrointestinal: Reports: as per HPI, abdominal pain. Denies: nausea, vomiting, diarrhea, constipation, melena, hematochezia Genitourinary: Reports: frequency Musculoskeletal: Denies: back pain Skin: Denies: rash Neurological: Denies: headache, weakness, numbness Past Medical History Past Medical History: GERD/Reflux, Hyperlipidemia, Hypertension, Syncope Additional Past Medical History / Comment(s): 06/14/15 Pt presented to [facility] ER with dizziness, lightheaded since yesterday. Driving to work today he started having tingling and discomfort L arm and mild chest discomfort below L breast. Other HX: high cholesterol but numbers have improved and pt is now off medication for this, pt states he has not been taking his blood pressure medication as he should, black out spells last episode 2008, restless leg syndrome, 01/13/15 echo showed mild mitral and tri regurg, moderate concentric L ventricular hypertrophy, L ventricular systolic function normal with EF 55-60%. History of Any Multi-Drug Resistant Organisms: None Reported Past Surgical History: Heart Catheterization, Orthopedic Surgery Additional Past Surgical History / Comment(s): Catheterization yrs ago-normal, vasectomy, Right arm tendon reattached as child, right ankle fracture-surgery re quired twice., Past Anesthesia/Blood Transfusion Reactions: No Reported Reaction Past Psychological History: Depression Smoking Status: Current every day smoker Past Alcohol Use History: None Reported Past Drug Use History: None Reported - Past Family History Father History Unknown: Yes Additional Family Medical History / Comment(s): Patient's father is alive at 65 years of age. Mother Family Medical History: Coronary Artery Disease (CAD), Myocardial Infarction (LA) Additional Family Medical History / Comment(s): Mother of a LA at age 61 yrs. General Exam Limitations: no limitations General appearance: alert, in no apparent distress Head exam: Present: atraumatic, normocephalic Eye exam: Present: normal appearance. Absent: scleral icterus, conjunctival injection Neck exam: Present: normal inspection Respiratory exam: Present: normal lung sounds bilaterally. Absent: respiratory distress, wheezes, rales, rhonchi, stridor Cardiovascular Exam: Present: regular rate, normal rhythm, normal heart sounds. Absent: systolic murmur, diastolic murmur, rubs, gallop GI/Abdominal exam: Present: soft. Absent: distended, tenderness, guarding, rebound, rigid, mass Extremities exam: Present: normal inspection, normal capillary refill. Absent: pedal edema, calf tenderness Back exam: Present: normal inspection, CVA tenderness (R). Absent: CVA tenderness (L) Neurological exam: Present: alert Skin exam: Present: warm, dry, intact, normal color. Absent: rash Course Vital Signs 09/17/18 22:44 Temperature 98.7 F Pulse Rate 106 H Respiratory 18 Rate Blood Pressure 170/84 O2 Sat by Pulse 96 Oximetry Medical Decision Making - Lab Data Result diagrams: 09/17/18 23:01 09/17/18 23:01 Lab Results 09/17/18 09/17/18 09/17/18 Range/Units 23:01 23:01 23:01 WBC 8.0 (3.8-10.6) k/uL RBC 4.95 (4.30-5.90) m/uL Hgb 15.6 (13.0-17.5) gm/dL Hct 46.8 (39.0-53.0) % MCV 94.5 (80.0-100.0) fL MCH 31.5 (25.0-35.0) pg MCHC 33.3 (31.0-37.0) g/dL RDW 13.6 (11.5-15.5) % Plt Count 183 (150-450) k/uL Neutrophils % 65 % Lymphocytes % 25 % Monocytes % 5 % Eosinophils % 4 % Basophils % 0 % Neutrophils # 5.1 (1.3-7.7) k/uL Lymphocytes # 2.0 (1.0-4.8) k/uL Monocytes # 0.4 (0-1.0) k/uL Eosinophils # 0.3 (0-0.7) k/uL Basophils # 0.0 (0-0.2) k/uL Sodium 140 (137-145) mmol/L Potassium 4.7 (3.5-5.1) mmol/L Chloride 109 H (98-107) mmol/L Carbon Dioxide 25 (22-30) mmol/L Anion Gap 6 mmol/L BUN 19 (9-20) mg/dL Creatinine 1.00 (0.66-1.25) mg/dL Est GFR (CKD-EPI)AfAm >90 (>60 ml/min/1.73 sqM) Est GFR (CKD-EPI)NonAf 89 (>60 ml/min/1.73 sqM) Glucose 122 H (74-99) mg/dL Calcium 9.5 (8.4-10.2) mg/dL Total Bilirubin 0.4 (0.2-1.3) mg/dL AST 25 (17-59) U/L ALT 45 (21-72) U/L Alkaline Phosphatase 117 (38-126) U/L Total Protein 7.2 (6.3-8.2) g/dL Albumin 4.2 (3.5-5.0) g/dL Amylase 95 (30-110) U/L Lipase 121 (23-300) U/L Urine Color Yellow Urine Appearance Clear (Clear) Urine pH 5.5 (5.0-8.0) Ur Specific [place] 1.026 (1.001-1.035) Urine Protein Negative (Negative) Urine Glucose (UA) Negative (Negative) Urine Ketones Negative (Negative) Urine Blood Small H (Negative) Urine Nitrite Negative (Negative) Urine Bilirubin Negative (Negative) Urine Urobilinogen <2.0 (<2.0) mg/dL Ur Leukocyte Esterase Negative (Negative) Urine RBC 2 (0-5) /hpf Urine WBC <1 (0-5) /hpf Ur Squamous Epith Cells <1 (0-4) /hpf Urine Bacteria Rare H (None) /hpf Urine Mucus Rare H (None) /hpf Disposition Clinical Impression: Abdominal pain Disposition: HOME SELF-CARE Condition: Good Instructions (If sedation given, give patient instructions): Abdominal Pain (ED) Is patient prescribed a controlled substance at d/c from ED?: No Referrals: Magnus Nj DO [Primary Care Provider] - 1-2 days
--- NOTE | 2018-09-18 00:04 | CT ---
EXAM: CT Abdomen and Pelvis Without Intravenous Contrast CLINICAL HISTORY: Right flank pain TECHNIQUE: Axial computed tomography images of the abdomen and pelvis without intravenous contrast. CTDI is 24.4 mGy and DLP is 1344.4 mGy-cm. This CT exam was performed using one or more of the following dose reduction techniques: automated exposure control, adjustment of the mA and/or kV according to patient size, and/or use of iterative reconstruction technique. COMPARISON: No relevant prior studies available. FINDINGS: Lung bases: Unremarkable. No mass. No consolidation. ABDOMEN: Liver: Unremarkable. Gallbladder and bile ducts: The gallbladder is completely decompressed. No calcified stones. No ductal dilation. Pancreas: Unremarkable. No ductal dilation. Spleen: Unremarkable. No splenomegaly. Adrenals: Unremarkable. No mass. Kidneys and ureters: Unremarkable. No obstructing stones. No hydronephrosis. Stomach and bowel: Rare diverticula in the proximal sigmoid colon are noted. Evaluation of bowel mucosa is limited without contrast. No obstruction. PELVIS: Appendix: A normal caliber appendix is noted in the right lower quadrant. Bladder: Diffuse mucosal prominence of the bladder appears somewhat prominent for degree of distention. No stones. Reproductive: Unremarkable as visualized. ABDOMEN and PELVIS: Intraperitoneal space: Unremarkable. No free air. No significant fluid collection. Bones/joints: Multilevel hypertrophic osteophyte changes are noted involving the inferior thoracic and lumbar spine. No acute osseous abnormality identified. No dislocation. Soft tissues: Unremarkable. Vasculature: Unremarkable. No abdominal aortic aneurysm. Lymph nodes: Unremarkable. No enlarged lymph nodes. IMPRESSION: Diffuse mucosal prominence of the bladder appears somewhat prominent for degree of distention. Differential consideration includes cystitis. Please correlate with urinalysis, as appropriate. No renal collecting stones or hydronephrosis identified.
[2018-09-18 01:08] VITALS: BP 132/72; PULSE 66
== END 2018-09-18 01:08 | disposition home or self-care (01) ==
LOC: EC 22:41
DX: R10.9 Unspecified abdominal pain (principal); I10 Essential (primary) hypertension; F32.9 Major depressive disorder, single episode, unspecified; F17.200 Nicotine dependence, unspecified, uncomplicated; Z79.1 Long term (current) use of non-steroidal anti-inflammatories (NSAID); Z79.899 Other long term (current) drug therapy; Z95.818 Presence of other cardiac implants and grafts
CPT/HCPCS: 36415; 74176; 80053; 81001; 82150; 83690; 85025; 99284

== ENCOUNTER → 2020-02-23 | Outpatient (CLI) | payer BC ==
--- NOTE | 2020-02-23 19:39 | CONS ---
CONSULTATION REASON FOR CONSULTATION: Sleep apnea. This is a 49-year-old obese male patient with known history of hypertension, hyperlipidemia and history of depression, coming in for a sleep evaluation with a concern of him having obstructive sleep apnea. The patient has had history of loud snoring. He goes to bed usually at around 8:00 in the evening and he gets out of bed around 5:00, as the patient has to be at work early in the morning, around 6. He works in [employer] in a local [employer]. The patient wakes up frequently in the middle of the night. At times, he wakes up where he has to do different activities such as watch TV, eat and move on a couch and, following that he would be able to go back to sleep. His sleep is quite fragmented and the patient wakes up frequently. He does not take any naps during the day. He prefers to sleep on his side. He has gained around 30 pounds over the past one year. No nocturnal heartburn, chest pain, shortness of breath. He has issues with chronic restlessness in his lower extremities and the patient has been taking Requip for symptoms of RLS. No reported sleepwalking or sleeptalking. No grinding of the teeth. No nocturnal chest pain, shortness of breath or heartburn. PAST MEDICAL HISTORY: Obesity, RLS, hypertension, hyperlipidemia and history of depression. PAST SURGICAL HISTORY: Past surgical history includes an ankle surgery. DRUG ALLERGIES: NOT KNOWN. OUTPATIENT MEDICATIONS: The patient takes venlafaxine 75 mg p.o. daily, Requip 0.5 mg p.o. daily. He also takes a combination of antihypertensive medication, cholesterol pill and a diuretic. SOCIAL HISTORY: The patient smokes one pack of cigarettes a day. No history of alcoholism. No substance abuse. FAMILY HISTORY: His father abandoned him at the age of 3, so he does not know much about his father. His mother in her sleep from an underlying CVA. REVIEW OF SYSTEMS: A complete review of system was done and the positive findings are mentioned above in the history of present illness. The patient has had around 30 pounds' weight gain, as mentioned. No sleep paralysis. No hallucinations. No cataplexy. Otherwise, review of systems negative other than things mentioned above in the history of present illness. PHYSICAL EXAMINATION: BP is 174/95, pulse is 72, respirations 14, temperature 98.0. [place] Score is 17. Neck size is 20 inches. BMI is 48.5. Height is 5 feet 8 inches. Weight is 319. GENERAL APPEARANCE: Calm, comfortable. No acute distress. HEAD: Atraumatic, normocephalic. NECK: Short, supple. No JVD. No goiter or neck masses. Mallampati class IV. LUNGS: Clear to auscultation. HEART: Heart sounds are regular rate and rhythm. Normal S1, S2. No S3, S4. No murmurs. ABDOMEN: Soft, nontender. No organomegaly. EXTREMITIES: Trace edema. No cyanosis or clubbing. IMPRESSION: 1. Hypersomnia, currently under investigation. The patient has loud snoring and sleep fragmentation. He does have features of obstructive sleep apnea, including obesity, short neck, crowding in the posterior pharynx with a Mallampati class IV, and a neck size of 20 inches. His current [place] Score is 17. Highly suspect obstructive sleep apnea. 2. Restless legs syndrome currently on Requip. The patient does have some residual symptoms despite being on Requip. 3. Obesity with a BMI of 48.5. 4. Hypertension, which is poorly controlled. 5. Hyperlipidemia. 6. History of depression, maintained on venlafaxine. PLAN: Discussed issues related to sleep hygiene. Would like to proceed with a polysomnogram to assess for any sleep breathing disorder. Evaluate this patient for any ongoing issues with restless legs, periodic limb movement activity. He needs to lose weight. He needs to optimize his sleep hygiene measures. I will proceed with a polysomnogram and make further recommendations if further treatment is needed in regard to his sleep problem. Will continue to follow. MMODL / IJN: [id number] /
== END | disposition home or self-care (01) ==
LOC: SLEEP 15:28
PROVIDERS: ATTEND Internal Medicine Critical Care Medicine
DX: G47.33 Obstructive sleep apnea (adult) (pediatric) (principal); G47.8 Other sleep disorders; G25.81 Restless legs syndrome; I10 Essential (primary) hypertension; E78.5 Hyperlipidemia, unspecified; Z86.59 Personal history of other mental and behavioral disorders; E66.9 Obesity, unspecified; Z68.42 Body mass index [BMI] 45.0-49.9, adult; Z79.899 Other long term (current) drug therapy
CPT/HCPCS: 99211

== ENCOUNTER 2020-04-29 11:55 | Observation (INO) | payer BC ==
[2020-04-29] MEDS ORDERED: ASPIRIN 81 MG PO STA (12:05)
--- NOTE | 2020-04-29 12:17 | ED ---
Chest Pain HPI - General Chief Complaint: Chest Pain Stated Complaint: dizziness/chest pain Source: patient Mode of arrival: wheelchair Limitations: no limitations - History of Present Illness Initial Comments: Patient complains of chest pain. Pain is in the middle of the chest. It does not radiate to the back. He has had some lightheadedness and dizziness, a little nausea as well. He has no vomiting. He has no blood in the stool or black or tarry stool. He was given an aspirin and a nitro tablet at his doctor's clinic prior to arrival. He has no pain In the arms or legs. He has no palpitations. He does not feel shortness of breath. He does have a history of exertional chest pain or shortness of breath. - Related Data Home Medications Medication Instructions Recorded Confirmed Venlafaxine HCl ER [Effexor XR] 150 mg PO HS 09/17/18 04/29/20 rOPINIRole HCL [Requip] 0.5 - 1 mg PO HS PRN 09/17/18 04/29/20 Atorvastatin Calcium [Lipitor] 10 mg PO HS 04/29/20 04/29/20 Levothyroxine Sodium [Synthroid] 25 mcg PO HS 04/29/20 04/29/20 Losartan Potassium [Cozaar] 100 mg PO HS 04/29/20 04/29/20 hydroCHLOROthiazide [Hydrodiuril] 25 mg PO HS 04/29/20 04/29/20 Allergies Allergy/AdvReac Type Severity Reaction Status Date / Time No Known Allergies Allergy Verified 04/29/20 13:01 Review of Systems ROS Statement: Those systems with pertinent positive or pertinent negative responses have been documented in the HPI. ROS Other: All systems not noted in ROS Statement are negative. EKG Findings - EKG Comments: EKG Findings:: Twelve-lead EKG shows ventricular rate 79 bpm, normal MA interval and Valentin complexes, no ST elevation or depression, interpreted by me as normal sinus rhythm. Past Medical History Past Medical History: GERD/Reflux, Hyperlipidemia, Hypertension, Syncope Additional Past Medical History / Comment(s): 06/14/15 Pt presented to [facility] ER with dizziness, lightheaded since yesterday. Driving to work today he started having tingling and discomfort L arm and mild chest discomfort below L breast. Other HX: high cholesterol but numbers have improved and pt is now off medication for this, pt states he has not been taking his blood pressure medication as he should, black out spells last episode 2008, restless leg syndrome, 01/13/15 echo showed mild mitral and tri regurg, moderate concentric L ventricular hypertrophy, L ventricular systolic function normal with EF 55-60%. History of Any Multi-Drug Resistant Organisms: None Reported Past Surgical History: Heart Catheterization, Orthopedic Surgery Additional Past Surgical History / Comment(s): Catheterization yrs ago-normal, vasectomy, Right arm tendon reattached as child, right ankle fracture-surgery required twice., Past Anesthesia/Blood Transfusion Reactions: No Reported Reaction Past Psychological History: Depression Smoking Status: Current every day smoker Past Alcohol Use History: None Reported Past Drug Use History: None Reported - Past Family History Father History Unknown: Yes Additional Family Medical History / Comment(s): Patient's father is alive at 65 years of age. Mother Family Medical History: Coronary Artery Disease (CAD), Myocardial Infarction (AR) Additional Family Medical History / Comment(s): Mother of a AR at age 61 yrs. General Exam Limitations: no limitations General appearance: alert, in no apparent distress Head exam: Present: atraumatic, normocephalic, normal inspection Eye exam: Present: normal appearance, PERRL, EOMI. Absent: scleral icterus, conjunctival injection, periorbital swelling ENT exam: Present: normal exam, mucous membranes moist Neck exam: Present: normal inspection. Absent: tenderness, meningismus, lymphadenopathy Respiratory exam: Present: normal lung sounds bilaterally. Absent: respiratory distress, wheezes, rales, rhonchi, stridor Cardiovascular Exam: Present: regular rate, normal rhythm, normal heart sounds. Absent: systolic murmur, diastolic murmur, rubs, gallop, clicks GI/Abdominal exam: Present: soft, normal bowel sounds. Absent: distended, tenderness, guarding, rebound, rigid Extremities exam: Present: normal inspection, full ROM, normal capillary refill. Absent: tenderness, pedal edema, joint swelling, calf tenderness Back exam: Present: normal inspection Neurological exam: Present: alert, oriented X3, CN II-XII intact Psychiatric exam: Present: normal affect, normal mood Skin exam: Present: warm, dry, intact, normal color. Absent: rash Course Vital Signs 04/29/20 04/29/20 11:57 12:58 Temperature 98.7 F Pulse Rate 88 80 Respiratory 22 18 Rate Blood Pressure 159/90 135/87 O2 Sat by Pulse 99 96 Oximetry Chest Pain MDM - Core Measures AMI Core Measures Followed: Yes - MDM Patient complains of chest pain. Initial laboratory studies are normal. Chest x-rays clear. I am concern for ACS. His symptoms are typical. He will be admitted to the hospital. I consult to cardiology. Disposition Clinical Impression: Chest pain Disposition: ADMITTED IP TO THIS HOSP Condition: Fair Is patient prescribed a controlled substance at d/c from ED?: No Referrals: Magnus Nj DO [Primary Care Provider] - 1-2 days
[2020-04-29 12:32] LABS: Basophils % (A) 0 %; Eosinophils # (A) 0.2 k/uL (0-0.7); Eosinophils % (A) 2 %; HCT 48.6 % (39.0-53.0); HGB 15.8 gm/dL (13.0-17.5); Lymphocytes # (A) 1.7 k/uL (1.0-4.8); Lymphocytes % (A) 22 %; MCH 30.8 pg (25.0-35.0); MCHC 32.5 g/dL (31.0-37.0); MCV 94.9 fL (80.0-100.0); Monocytes # (A) 0.3 k/uL (0-1.0); Monocytes % (A) 4 %; Neutrophils # (A) 5.4 k/uL (1.3-7.7); Neutrophils % (A) 71 %; Platelet Count 187 k/uL (150-450); RBC 5.12 m/uL (4.30-5.90); RDW 13.6 % (11.5-15.5); WBC 7.7 k/uL (3.8-10.6)
--- NOTE | 2020-04-29 12:38 | XR ---
EXAMINATION TYPE: XR chest 1V portable DATE OF EXAM: 04/29/2020 COMPARISON: 06/14/2015 HISTORY: Chest pain TECHNIQUE: Single frontal view of the chest is obtained. FINDINGS: There is no focal air space opacity, pleural effusion, or pneumothorax seen. The cardiac silhouette size is within normal limits. The osseous structures are intact. Heart size prominent. N o overt failure. Arthropathy of the shoulders. IMPRESSION: No acute process.
[2020-04-29 12:43] LABS: INR 0.9 (<1.2); Prothrombin Time 9.9 sec (9.0-12.0)
[2020-04-29 12:48] LABS: ALT 39 U/L (4-49); AST 26 U/L (17-59); African American GFR (CKD) >90 (>60 ml/min/1.73 sqM); Albumin 4.2 g/dL (3.5-5.0); Alkaline Phosphatase 118 U/L (38-126); Anion Gap 5 mmol/L; Blood Urea Nitrogen 12 mg/dL (9-20); Calcium 8.8 mg/dL (8.4-10.2); Carbon Dioxide 25 mmol/L (22-30); Chloride 107 mmol/L (98-107); Glucose 108 mg/dL (74-99); Magnesium 1.9 mg/dL (1.6-2.3); Non-African American GFR(CKD) >90 (>60 ml/min/1.73 sqM); Potassium 4.3 mmol/L (3.5-5.1); Sodium 137 mmol/L (137-145); Total Bilirubin 0.5 mg/dL (0.2-1.3); Total Protein 7.8 g/dL (6.3-8.2)
[2020-04-29] MEDS ORDERED: HYDROcodone/APAP 5-325MG 1 EACH TAB PO PRN (13:53)
[2020-04-29] MEDS ORDERED: TEMAZEPAM 15 MG CAP PO PRN (13:53)
[2020-04-29] MEDS ORDERED: bisacodyL 5 MG TABLET.DR PO PRN (13:53)
[2020-04-29] MEDS ORDERED: NALOXONE 0.4 MG/ML 1 ML VIAL IV PRN (13:53)
[2020-04-29] MEDS ORDERED: ONDANSETRON 4 MG/2 ML VIAL IVP PRN (13:53)
[2020-04-29] MEDS ORDERED: MORPHINE SULFATE 4 MG/ML SYRINGE IV PRN (13:53)
[2020-04-29] MEDS ORDERED: MAG HYDROX/AL HYDROX/SIMETH 30 ML CUP PO PRN (13:53)
--- NOTE | 2020-04-29 17:24 | P.HPIM ---
History of Present Illness H&P Date: 04/29/20 Chief Complaint: Headache dizziness and chest pain off and on for 2 days This is a 49-year-old male with extensive history of smoking and nicotine use smokes about 2-3 packs per day for over 25 years, also has a history of hypertension and hypertensive cardiovascular disease dyslipidemia and obstructive sleep apnea diagnosed recently which is severe has not received his CPAP machine, and had 2 episodes of passing out in the past but exactly cannot describe the details of it, for last 2 days he is been having dizzy episodes of lightheadedness and intermittent chest pain which is substernal came into emergency department admitted into the hospital with neurology as well as cardiovascular services on consult on patient's coag-negative labs are unremarkable troponin 2 are negative, chest x-ray is unremarkable, ECG is normal sinus rhythm with a right bundle branch block Review of Systems All systems: negative Past Medical History Past Medical History: GERD/Reflux, Hyperlipidemia, Hypertension, Syncope Additional Past Medical History / Comment(s): 06/14/15 Pt presented to [facility] ER with dizziness, lightheaded since yesterday. Driving to work today he started having tingling and discomfort L arm and mild chest discomfort below L breast. Other HX: high cholesterol but numbers have improved and pt is now off medication for this, pt states he has not been taking his blood pressure medication as he should, black out spells last episode 2008, restless leg syndrome, 01/13/15 echo showed mild mitral and tri regurg, moderate concentric L ventricular hypertrophy, L ventricular systolic function normal with EF 55-60%. History of Any Multi-Drug Resistant Organisms: None Reported Past Surgical History: Heart Catheterization, Orthopedic Surgery Additional Past Surgical History / Comment(s): Catheterization yrs ago-normal, vasectomy, Right arm tendon reattached as child, right ankle fracture-surgery required twice., Past Anesthesia/Blood Transfusion Reactions: No Reported Reaction Past Psychological History: Depression Smoking Status: Current every day smoker Past Alcohol Use History: None Reported Past Drug Use History: None Reported - Past Family History Father History Unknown: Yes Additional Family Medical History / Comment(s): Patient's father is alive at 65 years of age. Mother Family Medical History: Coronary Artery Disease (CAD), Myocardial Infarction (RI) Additional Family Medical History / Comment(s): Mother of a RI at age 61 yrs. Medications and Allergies Home Medications Medication Instructions Recorded Confirmed Type Venlafaxine HCl ER [Effexor XR] 150 mg PO HS 09/17/18 04/29/20 History rOPINIRole HCL [Requip] 0.5 - 1 mg PO HS PRN 09/17/18 04/29/20 History Atorvastatin Calcium [Lipitor] 10 mg PO HS 04/29/20 04/29/20 History Levothyroxine Sodium [Synthroid] 25 mcg PO HS 04/29/20 04/29/20 History Losartan Potassium [Cozaar] 100 mg PO HS 04/29/20 04/29/20 History hydroCHLOROthiazide [Hydrodiuril] 25 mg PO HS 04/29/20 04/29/20 History Allergies Allergy/AdvReac Type Severity Reaction Status Date / Time No Known Allergies Allergy Verified 04/29/20 13:01 Physical Exam Vitals: Vital Signs Temp Pulse Resp BP Pulse Ox 04/29/20 16:24 75 18 135/82 98 04/29/20 15:09 82 18 134/81 97 04/29/20 14:04 85 18 153/94 98 04/29/20 12:58 80 18 135/87 96 04/29/20 11:57 98.7 F 88 22 159/90 99 Intake and Output 04/29/20 04/29/20 04/29/20 06:59 14:59 22:59 Other: Weight 145.15 kg - Constitutional General appearance: disheveled, morbidly obese - EENT Eyes: EOMI, PERRLA Ears: bilateral: normal - Neck Neck: normal ROM Carotids: bilateral: upstroke normal Thyroid: bilateral: normal size - Respiratory Respiratory: bilateral: CTA - Cardiovascular Rhythm: regular Heart sounds: normal: S1, S2 - Gastrointestinal General gastrointestinal: soft - Integumentary Integumentary: normal turgor - Neurologic Neurologic: CNII-XII intact - Musculoskeletal Musculoskeletal: gait normal, generalized weakness, strength equal bilaterally - Psychiatric Psychiatric: A&O x's 3, appropriate affect, intact judgment & insight Results CBC & Chem 7: 04/29/20 12:18 04/29/20 12:18 Labs: Abnormal Lab Results - Last 24 Hours (Table) 04/29/20 Range/Units 12:18 Glucose 108 H (74-99) mg/dL Chest x-ray: report reviewed, image reviewed (Finding as noted above) Assessment and Plan Assessment: Headache dizziness lightheadedness in a patient with extensive history of smoking and nicotine use dyslipidemia hypertension hypertensive cardiovascular disease will ask neurology to evaluate for posterior circulation problems insufficiency, neurology evaluation Atypical chest pain so far troponin has been negative cardiovascular services has been on consult Dyslipidemia Hypertension hypertensive cardiovascular disease Smoking and nicotine use Obstructive sleep apnea Morbid obesity Plan: Observe closely for symptoms of recurrence Cardiac enzymes 3 Cardiology consultation Neurology consultation Further recommendations pending plan of care as per clinical response of the patient Time with Patient: Greater than 30
[2020-04-29] MEDS: VENLAFAXINE HCL ER 150 MG CAP PO SCH (20:37)
[2020-04-29] MEDS: LOSARTAN 50 MG TAB PO SCH (20:37)
[2020-04-29] MEDS: LEVOTHYROXINE 25 MCG TAB PO SCH (20:37)
[2020-04-29] MEDS ORDERED: hydroCHLOROthiazide 25 MG TAB PO SCH (21:00)
[2020-04-29] MEDS ORDERED: ATORVASTATIN 10 MG TAB PO SCH (21:00)
--- NOTE | 2020-04-29 23:54 | P.CNNES ---
History of Present Illness Consult date: 04/29/20 Requesting physician: Gerber Mobley Reason for Consult: Headache/dizziness History of Present Illness: Patient is a 49-year-old male came to the hospital today at 11:55 AM for lightheadedness, headache and chest pain. 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 It involves both eyes- he thinks, although he never closed one or the other eye to see if it was monocular or binocular. His blurred vision persisted. Next a on , (yesterday) he got up and felt weak, lightheaded and has to steady himself. Whenever he would get up, he would feel spinning and has to grab hold onto something. He also noticed headache pointing to the frontal region which he rates 4/10, without any nausea vomiting light or noise sensitivity. When he would close his eyes, it would help. Denies any pain in the extremities, no palpitations or shortness of breath. Patient states that this morning he started having chest pain, he went to his primary physician, who gave him nitro and aspirin. He was recommended to go to the ER. As he was coming to the ER, he noticed that his blurred vision completely resolved. Vital signs on arrival blood pressure 159/90, pulse rate 88 temperature 98.7. Chest x-ray showed no acute process. EKG shows normal sinus rhythm, incomplete right bundle branch block. Patient did not have computed tomography scan of the head yet. His previous computed tomography scan from 06/14/2015 showed chronic ethmoid and frontal sinusitis, with mucosal thickening. Patient's blood test shows normal CBC, PT/PTT, Chem-20. Spangler virus CR negative. Patient has smoked 1 pack per day since age 17. He has hypertension for 20 years. Denies diabetes alcohol or drug use. He does not take any antiplatelet medication. He drinks 2 bottles of 20 oz [place] every day. Patient states he had history of blackouts in the past. The first time it happened when he was in choir in 1984. The next one according to thousand 9 when he was at work, but down and hit head on the picnic table. The last one he states was in 2013. He has seen veterinary surgeon and neurologist Dr. Murphy in the past. He gets headache only with changes in the weather, does not last as long as happened this time. Review of Systems Patient denies postnasal drip in, runny nose or sinus infection. Patient has chest pain, denies shortness of breath. Denies double vision, slurred speech, facial droop, focal numbness tingling or weakness. Denies abdominal pain, nausea vomiting diarrhea. Past Medical History Past Medical History: GERD/Reflux, Hyperlipidemia, Hypertension, Syncope Additional Past Medical History / Comment(s): 06/14/15 Pt presented to [facility] ER with dizziness, lightheaded since yesterday. Driving to work today he started having tingling and discomfort L arm and mild chest discomfort below L breast. Other HX: high cholesterol but numbers have improved and pt is now off medication for this, pt states he has not been taking his blood pressure medication as he should, black out spells last episode 2008, restless leg syndrome, 01/13/15 echo showed mild mitral and tri regurg, moderate concentric L ventricular hypertrophy, L ventricular systolic function normal with EF 55-60%. History of Any Multi-Drug Resistant Organisms: None Reported Past Surgical History: Heart Catheterization, Orthopedic Surgery Additional Past Surgical History / Comment(s): Catheterization yrs ago-normal, vasectomy, Right arm tendon reattached as child, right ankle fracture-surgery required twice., Past Anesthesia/Blood Transfusion Reactions: No Reported Reaction Past Psychological History: Depression Additional Psychological History / Comment(s): Pt resides with his spouse of 20 yrs and 4 children ranging in ages from 1 yr old to 18 yr old. He uses no assistive device. He drives. Smoking Status: Current every day smoker Past Alcohol Use History: None Reported Additional Past Alcohol Use History / Comment(s): Pt. denies alcohol and drug use currently or a past history. Past Drug Use History: None Reported - Past Family History Father History Unknown: Yes Additional Family Medical History / Comment(s): Patient's father is alive at 65 years of age. Mother Family Medical History: Coronary Artery Disease (CAD), Myocardial Infarction (RI) Additional Family Medical History / Comment(s): Mother of a RI at age 61 yrs. Medications and Allergies Home Medications Medication Instructions Recorded Confirmed Type Venlafaxine HCl ER [Effexor XR] 150 mg PO HS 09/17/18 04/29/20 History rOPINIRole HCL [Requip] 0.5 - 1 mg PO HS PRN 09/17/18 04/29/20 History Atorvastatin Calcium [Lipitor] 10 mg PO HS 04/29/20 04/29/20 History Levothyroxine Sodium [Synthroid] 25 mcg PO HS 04/29/20 04/29/20 History Losartan Potassium [Cozaar] 100 mg PO HS 04/29/20 04/29/20 History hydroCHLOROthiazide [Hydrodiuril] 25 mg PO HS 04/29/20 04/29/20 History Allergies Allergy/AdvReac Type Severity Reaction Status Date / Time No Known Allergies Allergy Verified 04/29/20 13:01 Physical Examination - Vital Signs Vital Signs: Vital Signs Temp Pulse Pulse Resp BP BP Pulse Ox 04/29/20 18:43 98.9 F 76 16 148/82 96 04/29/20 18:19 98 F 76 18 152/93 99 04/29/20 16:24 75 18 135/82 98 04/29/20 15:09 82 18 134/81 97 04/29/20 14:04 85 18 153/94 98 04/29/20 12:58 80 18 135/87 96 04/29/20 11:57 98.7 F 88 22 159/90 99 Intake and Output 04/29/20 04/29/20 04/29/20 06:59 14:59 22:59 Intake Total 250 Balance 250 Intake: Oral 250 Other: Weight 145.15 kg 145.15 kg On examination patient is a middle aged male, in no acute distress. Patient is alert awake oriented to time place and person. Speech and language functions are normal. Attention and concentration fund of knowledge is adequate. On cranial examination pupils are round and reacting to light, visual trejo are full on confrontation, extraocular muscles are intact with no nystagmus. Face is symmetric, tongue protrudes to the midline. Palatal elevation and sensation normal, hearing and shoulder shrug normal. On muscle strength testing there is no pronator drift and the strength is normal in arms and legs distally and proximally. Reflexes are 2+ in the upper limbs, 3 at the knees and ankles and plantars are downgoing. Sensory touch is equal with no neglect. No ataxia for [id number] testing tone and bulk of muscles normal. Gait appears fairly steady although he walks with decreased arm swing. He did get very dizzy on standing up. Tone and bulk of muscles normal. There is no obvious bruit, S1 and S2 audible, abdomen soft nontender, chest is clear. No peripheral edema. Results - Laboratory Findings CBC and BMP: 04/29/20 12:18 04/29/20 12:18 Abnormal Lab Findings: Abnormal Labs 04/29/20 12:18 Glucose 108 H Assessment and Plan Assessment: * Blurred vision, both eyes, that lasted for 2 days, and resolved after he took aspirin and nitro at home. Suggestive of possible cerebral ischemia. Rule out TIA/CVA. * Cephalgia, unclear cause. * Dizziness on standing up, likely orthostatic, rule out cardiac cause. * Chest pain, cardiology consulted. * Hypertension * Tobacco use * Obesity Plan: * Aspirin 325 mg daily. * MRI of brain rule out CVA * Carotid Doppler * Check orthostatics. * Telemetry monitoring. * Fasting lipid panel and hemoglobin A1c * Await cardiology consultation for chest pain. * Strongly recommended complete tobacco cessation. * Neurology coverage not available on the weekend. Please perfect serve for any questions over the weekend. * Dr. Kennedy Toro will resume neurology service on Saturday.
[2020-04-30 07:29] LABS: Cholesterol 223 mg/dL (<200); HDL Cholesterol 41 mg/dL (40-60); LDL Cholesterol,Calculated 156 mg/dL (0-99); Triglycerides 130 mg/dL (<150)
--- NOTE | 2020-04-30 08:21 | US ---
EXAMINATION TYPE: US carotid duplex BILAT DATE OF EXAM: 04/30/2020 COMPARISON: US 2009 CLINICAL HISTORY: Blurred vision, TIA, cephalgia. EXAM MEASUREMENTS: RIGHT: Peak Systolic Velocity (PSV) cm/sec ----- Right CCA: 86.0 ----- Right ICA: 86.0 ----- Right ECA: 125.8 ICA/CCA ratio: 1.0 RIGHT: End Diastole cm/sec ----- Right CCA: 22.0 ----- Right ICA: 24.7 ----- Right ECA: 25.7 LEFT: Peak Systolic Velocity (PSV) cm/sec ----- Left CCA: 85.3 ----- Left ICA: 91.8 ----- Left ECA: 103.4 ICA/CCA ratio: 1.1 LEFT: End Diastole cm/sec ----- Left CCA: 20.6 ----- Left ICA: 19.3 ----- Left ECA: 20.6 VERTEBRALS (direction of flow): Right Vertebral: Antegrade Left Vertebral: Antegrade Rhythm: Normal No significant stenosis seen, No elevated velocities. Minimal plaque noted, IMPRESSION: 1. Minimal plaque with no significant hemodynamic stenosis bilaterally Criteria for Assigning % of Stenosis / Diameter reduction (Estimation based on the indirect measurements of the internal carotid artery velocities (ICA PSV). 1. Normal (no stenosis)=ICA PSV < 125 cm/s: ratio < 2.0: ICA EDV<40 cm/s. 2. Less than 50% stenosis=ICA PSV < 125 cm/s: ratio < 2.0: ICA EDV<40 cm/s. 3. 50 to 69% stenosis=ICA PSV of 125 to 230 cm/s: ration 2.0 ? 4.0: ICA EDV 40-100 cm/s. 4. Greater than 70% stenosis to near occlusion= ICA PSV > 230 cm/s: ratio > 4.0: ICA EDV > 100 cm/s. 5. Near occlusion= ICA PSV velocities may be low or undetectable: variable ratio and ICA EDV. 6. Total occlusion=unable to detect flow.
[2020-04-30 08:54] VITALS: RESP 16
[2020-04-30] MEDS ORDERED: ASPIRIN 325 MG TAB PO SCH (09:00)
[2020-04-30] MEDS ORDERED: hydroCHLOROthiazide 25 MG TAB PO SCH (10:30)
--- NOTE | 2020-04-30 13:06 | P.CRDCN ---
History of Present Illness Consult date: 04/30/20 Consult reason: chest pain, hypertension History of present illness: The patient is a 49-year-old male with past medical history of obesity, hyper tension, dyslipidemia, sleep apnea, and current smoker, who presents to the hospital after having 2 episodes of dizziness and visual changes. He also had an episode of chest discomfort which was midsternal and sharp. He states that this pain was not associated with any exertional activity and was just "resting in his chair." He states he does have a history of dizziness and lightheadedness, however it has not happened in several years. The patient was interviewed and examined lying comfortably in bed. He states he does have a headache at this time although it has improved since being admitted to the hospital. He states he is compliant with all of his cardiac medications. DIAGNOSTICS: Chest x-ray shows no acute process EKG shows sinus mechanism with incomplete right bundle-branch block Laboratory data shows WBC 7.7, hemoglobin 15.8, platelet 187, sodium 137, potassium 4.3, BUN 12, creatinine 0.77, magnesium 1.9, troponins negative 3, triglycerides 223, LDL 156 PAST MEDICAL HISTORY: Acid reflux, hyperlipidemia, hypertension, syncope, sleep apnea REVIEW OF SYSTEMS: No fever or chills. No cough or expectoration. No diaphoresis. Patient denies any stomach discomfort. No nausea, vomiting. No hematochezia. No hematemesis. Denies any black stools or blood in his stools. Denies dysuria or hematuria. No muscle weakness or numbness. No shortness of breath. No chest discomfort at this time. Positive for headache PHYSICAL EXAMINATION: This is a 49-year-old obese male in no apparent distress at the time of my examination. HEENT: Head is atraumatic, normocephalic. Pupils are equal, round. Sclerae anicteric. Conjunctivae are clear. Mucous membranes of the mouth are moist. Neck is supple. There is no jugular venous distention. No carotid bruit is heard. CHEST EXAMINATION: Lungs are clear to auscultation, diminished in the bases. No chest wall tenderness is noted on palpation or with deep breathing. HEART EXAMINATION: Heart regular rate and rhythm. S1, S2 heard. No murmurs, gallops or rub. ABDOMEN: Soft, nontender. Bowel sounds are heard. No organomegaly noted. EXTREMITIES: 2+ peripheral pulses with no evidence of peripheral edema and no calf tenderness noted. NEUROLOGIC EXAMINATION: Patient is awake, alert and oriented x3. FINAL ASSESSMENT AND PLAN: #1 atypical chest discomfort, sharpnonexertional #2 uncontrolled hypertension #3 mild carotid atherosclerosis #4 dizziness and visual disturbances, neurology consult, MRI pending PLAN: Maximize antihypertensives Start amlodipine 5 mg daily Move hydrochlorothiazide in the morning Increase atorvastatin 40mg Continue to follow with neurology The patient has been seen and evaluated. Plan of care has been reviewed and agreed upon by Dr Beckham. Past Medical History Past Medical History: GERD/Reflux, Hyperlipidemia, Hypertension, Syncope Additional Past Medical History / Comment(s): 06/14/15 Pt presented to [facility] ER with dizziness, lightheaded since yesterday. Driving to work today he started having tingling and discomfort L arm and mild chest discomfort below L breast. Other HX: high cholesterol but numbers have improved and pt is now off medication for this, pt states he has not been taking his blood pressure medication as he should, black out spells last episode 2008, restless leg syndrome, 01/13/15 echo showed mild mitral and tri regurg, moderate concentric L ventricular hypertrophy, L ventricular systolic function normal with EF 55-60%. History of Any Multi-Drug Resistant Organisms: None Reported Past Surgical History: Heart Catheterization, Orthopedic Surgery Additional Past Surgical History / Comment(s): Catheterization yrs ago-normal, vasectomy, Right arm tendon reattached as child, right ankle fracture-surgery required twice., Past Anesthesia/Blood Transfusion Reactions: No Reported Reaction Past Psychological History: Depression Additional Psychological History / Comment(s): Pt resides with his spouse of 20 yrs and 4 children ranging in ages from 1 yr old to 18 yr old. He uses no assistive device. He drives. Smoking Status: Current every day smoker Past Alcohol Use History: None Reported Additional Past Alcohol Use History / Comment(s): Pt. denies alcohol and drug use currently or a past history. Past Drug Use History: None Reported - Past Family History Father History Unknown: Yes Additional Family Medical History / Comment(s): Patient's father is alive at 65 years of age. Mother Family Medical History: Coronary Artery Disease (CAD), Myocardial Infarction ([place]) Additional Family Medical History / Comment(s): Mother of a [place] at age 61 yrs. Medications and Allergies Home Medications Medication Instructions Recorded Confirmed Type Venlafaxine HCl ER [Effexor XR] 150 mg PO HS 09/17/18 04/29/20 History rOPINIRole HCL [Requip] 0.5 - 1 mg PO HS PRN 09/17/18 04/29/20 History Atorvastatin Calcium [Lipitor] 10 mg PO HS 04/29/20 04/29/20 History Levothyroxine Sodium [Synthroid] 25 mcg PO HS 04/29/20 04/29/20 History Losartan Potassium [Cozaar] 100 mg PO HS 04/29/20 04/29/20 History hydroCHLOROthiazide [Hydrodiuril] 25 mg PO HS 04/29/20 04/29/20 History Allergies Allergy/AdvReac Type Severity Reaction Status Date / Time No Known Allergies Allergy Verified 04/29/20 13:01 Physical Exam Vitals: Vital Signs Temp Pulse Pulse Pulse Pulse Pulse Resp 04/30/20 08:56 70 16 04/30/20 08:14 98.1 F 70 16 04/30/20 04:40 97.8 F 87 95 84 71 17 04/29/20 20:20 98 F 77 18 04/29/20 18:43 98.9 F 76 16 04/29/20 18:19 98 F 76 18 04/29/20 16:24 75 18 04/29/20 15:09 82 18 04/29/20 14:04 85 18 04/29/20 12:58 80 18 BP BP BP BP BP Pulse Ox 04/30/20 08:56 04/30/20 08:14 136/80 95 04/30/20 04:40 124/78 143/83 137/78 143/80 98 04/29/20 20:20 133/76 96 04/29/20 18:43 148/82 96 04/29/20 18:19 152/93 99 04/29/20 16:24 135/82 98 04/29/20 15:09 134/81 97 04/29/20 14:04 153/94 98 04/29/20 12:58 135/87 96 Intake and Output 04/29/20 04/30/20 04/30/20 22:59 06:59 14:59 Intake Total 250 Balance 250 Intake: Oral 250 Other: Voiding Method Toilet Toilet Toilet # Voids 3 1 Weight 145.15 kg Results 04/29/20 12:18 04/29/20 12:18 Cardiac Enzymes 04/29/20 04/29/20 04/29/20 Range/Units 12:18 12:18 15:24 AST 26 (17-59) U/L Troponin I <0.012 <0.012 (0.000-0.034) ng/mL 04/29/20 Range/Units 17:51 AST (17-59) U/L Troponin I <0.012 (0.000-0.034) ng/mL Lipids 04/30/20 Range/Units 06:46 Triglycerides 130 (<150) mg/dL Cholesterol 223 H (<200) mg/dL HDL Cholesterol 41 (40-60) mg/dL Comprehensive Metabolic Panel 04/29/20 Range/Units 12:18 Sodium 137 (137-145) mmol/L Potassium 4.3 (3.5-5.1) mmol/L Chloride 107 (98-107) mmol/L Carbon Dioxide 25 (22-30) mmol/L BUN 12 (9-20) mg/dL Creatinine 0.77 (0.66-1.25) mg/dL Glucose 108 H (74-99) mg/dL Calcium 8.8 (8.4-10.2) mg/dL AST 26 (17-59) U/L ALT 39 (4-49) U/L Alkaline Phosphatase 118 (38-126) U/L Total Protein 7.8 (6.3-8.2) g/dL Albumin 4.2 (3.5-5.0) g/dL Current Medications Generic Name Dose Route Start Last Admin Trade Name Freq PRN Reason Stop Dose Admin Hydrocodone Bitart/Acetaminophen 1 each 04/29/20 13:53 Hydrocodone/Apap 5-325mg 1 Each Tab PO Q4HR PRN Moderate Pain Al Hydroxide/Mg Hydroxide 15 ml 04/29/20 13:53 Mag Hydrox/Al Hydrox/Simeth 30 Ml Cup PO Q6HR PRN Indigestion Amlodipine Besylate 5 mg 04/30/20 21:00 Amlodipine 5 Mg Tab PO HS COLLEEN Aspirin 325 mg 04/30/20 09:00 04/30/20 08:17 Aspirin 325 Mg Tab PO 325 mg DAILY COLLEEN Administration Atorvastatin Calcium 10 mg 04/29/20 21:00 04/29/20 20:37 Atorvastatin 10 Mg Tab PO 10 mg HS COLLEEN Administration Bisacodyl 5 mg 04/29/20 13:53 Bisacodyl 5 Mg Tablet.Dr PO DAILY PRN Constipation Hydrochlorothiazide 25 mg 04/30/20 10:30 04/30/20 10:55 Hydrochlorothiazide 25 Mg Tab PO 25 mg DAILY COLLEEN Administration Levothyroxine Sodium 25 mcg 04/29/20 21:00 04/29/20 20:37 Levothyroxine 25 Mcg Tab PO 25 mcg HS COLLEEN Administration Losartan Potassium 100 mg 04/29/20 21:00 04/29/20 20:37 Losartan 50 Mg Tab PO 100 mg HS COLLEEN Administration Morphine Sulfate 4 mg 04/29/20 13:53 Morphine Sulfate 4 Mg/Ml Syringe IV Q4HR PRN Severe Pain Naloxone HCl 0.2 mg 04/29/20 13:53 Naloxone 0.4 Mg/Ml 1 Ml Vial IV Q2M PRN Opioid Reversal Ondansetron HCl 4 mg 04/29/20 13:53 Ondansetron 4 Mg/2 Ml Vial IVP Q8HR PRN Nausea And Vomiting Temazepam 15 mg 04/29/20 13:53 Temazepam 15 Mg Cap PO HS PRN Insomnia Venlafaxine HCl 150 mg 04/29/20 21:00 04/29/20 20:37 Venlafaxine Hcl Er 150 Mg Cap PO 150 mg HS COLLEEN Administration Intake and Output 04/29/20 04/30/20 04/30/20 22:59 06:59 14:59 Intake Total 250 Balance 250 Intake: Oral 250 Other: Voiding Method Toilet Toilet Toilet # Voids 3 1 Weight 145.15 kg 04/29/20 12:18 04/29/20 12:18
--- NOTE | 2020-04-30 13:26 | MR ---
EXAMINATION TYPE: MR brain wo con DATE OF EXAM: 04/30/2020 COMPARISON: 11/21/2009 HISTORY: Blurred vision, cephalgia, TIA Multiplanar multiecho imaging of the brain was performed without contrast. Ventricles have normal size. There is no mass effect nor midline shift. There is no sign of intracran ial hemorrhage. There is no evidence of cerebral edema. Corpus callosum is intact. Perfusion images s how no evidence of an infarct. Brainstem is intact. There is mild mucosal thickening in the ethmoid s inuses. There is single 4 mm focus of increased signal in the white matter insula left temporal lobe. Sella turcica appears normal. IMPRESSION: Single small focus of increased white matter signal in the insula left temporal lobe is a change comp ared to old exam. Otherwise negative exam. No evidence of cortical infarct. Mild ethmoid sinusitis unchanged.
[2020-04-30] MEDS: LOSARTAN 50 MG TAB PO SCH (20:37)
[2020-04-30] MEDS: LEVOTHYROXINE 25 MCG TAB PO SCH (20:37)
[2020-04-30] MEDS: VENLAFAXINE HCL ER 150 MG CAP PO SCH (20:38)
[2020-04-30] MEDS ORDERED: ATORVASTATIN 40 MG TAB PO SCH (21:00)
[2020-04-30] MEDS ORDERED: amLODIPine 5 MG TAB PO SCH (21:00)
[2020-04-30 21:08] LABS: Hemoglobin A1C 6.2 % (4.0-6.0)
--- NOTE | 2020-04-30 21:52 | P.DS ---
Providers Date of admission: 04/29/20 13:53 Expected date of discharge: 04/30/20 Attending physician: Gerber Mobley Consults: 04/29/20 13:53 Consult Physician Routine Consulting Provider: Mary Huerta Consult Reason/Comments: chest pain Do you want consulting provider notified?: Yes 04/29/20 17:58 Consult Physician Stat Consulting Provider: Hola Hernandez Consult Reason/Comments: Headache/dizziness Do you want consulting provider notified?: Yes Primary care physician: [facility] Course: Patient has been evaluated by neurology as well as cardiovascular services, recommended to have a MRI of the brain as well as carotid Doppler, MRI of the brain was within normal limit, carotid Doppler was negative for significant stenosis cardiovascular services evaluated as well recommended to follow-up as outpatient, they recommended to increase the Lipitor to 40 mg daily, patient has been instructed to take one aspirin daily 325 mg, Norvasc 5 mg has been added as well rest of the medicines that The same Assessment: Hypertensive urgency Atypical chest pain so far troponin has been negative cardiovascular services has been on consult Dyslipidemia Hypertension hypertensive cardiovascular disease Smoking and nicotine use Obstructive sleep apnea Morbid obesity Health Concerns: Morbid obesity, dyslipidemia, hypertension, Pertinent Studies: Patient underwent MRI of the brain, carotid duplex ultrasound of both carotids, evaluated by neurology as well as cardiovascular services chest x-ray Patient Condition at Discharge: Fair Plan - Discharge Summary New Discharge Prescriptions: New amLODIPine [Norvasc] 5 mg PO DAILY #30 tab No Action rOPINIRole HCL [Requip] 0.5 - 1 mg PO HS PRN PRN Reason: RESTLESS LEGS Venlafaxine HCl ER [Effexor XR] 150 mg PO HS Levothyroxine Sodium [Synthroid] 25 mcg PO HS hydroCHLOROthiazide [Hydrodiuril] 25 mg PO HS Losartan Potassium [Cozaar] 100 mg PO HS Atorvastatin Calcium [Lipitor] 10 mg PO HS Discharge Medication List Venlafaxine HCl ER [Effexor XR] 150 mg PO HS 09/17/18 [History] rOPINIRole HCL [Requip] 0.5 - 1 mg PO HS PRN 09/17/18 [History] Atorvastatin Calcium [Lipitor] 10 mg PO HS 04/29/20 [History] Levothyroxine Sodium [Synthroid] 25 mcg PO HS 04/29/20 [History] Losartan Potassium [Cozaar] 100 mg PO HS 04/29/20 [History] hydroCHLOROthiazide [Hydrodiuril] 25 mg PO HS 04/29/20 [History] amLODIPine [Norvasc] 5 mg PO DAILY #30 tab 04/30/20 [Rx] Follow up Appointment(s)/Referral(s): Kevin Beckham MD [STAFF PHYSICIAN] - 2 Weeks Magnus Nj DO [Primary Care Provider] - 1-2 days
[2020-05-01 01:06] VITALS: BP 138/76; PULSE 76; TEMP 98.3
== END 2020-04-30 23:10 | disposition home or self-care (01) ==
LOC: EC 11:55 → 1SOBS 13:53
PROVIDERS: ADMIT Internal Medicine Sleep Medicine; ATTEND Internal Medicine Sleep Medicine
DX: I16.0 Hypertensive urgency (principal); R07.89 Other chest pain; I11.9 Hypertensive heart disease without heart failure; E78.5 Hyperlipidemia, unspecified; G47.33 Obstructive sleep apnea (adult) (pediatric); K21.9 Gastro-esophageal reflux disease without esophagitis; G25.81 Restless legs syndrome; E78.00 Pure hypercholesterolemia, unspecified; T46.5X6A Underdosing of other antihypertensive drugs, initial encounter; I08.1 Rheumatic disorders of both mitral and tricuspid valves; I45.10 Unspecified right bundle-branch block; F32.9 Major depressive disorder, single episode, unspecified; I70.8 Atherosclerosis of other arteries; F17.210 Nicotine dependence, cigarettes, uncomplicated; E66.01 Morbid (severe) obesity due to excess calories; Z68.42 Body mass index [BMI] 45.0-49.9, adult; J32.2 Chronic ethmoidal sinusitis; Z79.890 Hormone replacement therapy; Z79.899 Other long term (current) drug therapy; Z86.79 Personal history of other diseases of the circulatory system; Z98.52 Vasectomy status; Z87.81 Personal history of (healed) traumatic fracture; Z98.890 Other specified postprocedural states; Z82.49 Family history of ischemic heart disease and other diseases of the circulatory system
CPT/HCPCS: 93005 ×2; 99285; 36415; 83880; 80061; 80053; 83735; 84484; 85025; 85610; 85730; 83036; 87635; 71045; 93880; 70551; G0378 ×2

== ENCOUNTER 2020-11-11 11:11 | Day surgery (SDC) | payer BC ==
[2020-11-09 12:53] VITALS: BMI 48.6
[~2020-11-11 11:11] MED LIST: DEXAMETHASONE SOD PHOSPHATE 4 MG/ML 1 ML VIAL IV ONE; HYDROmorphone 0.5 MG/0.5 ML SYRINGE IVP PRN; LACTATED RINGERS 1,000 ML IV SCH; MIDAZOLAM 2 MG/2 ML VIAL IV PRN; ONDANSETRON 4 MG/2 ML VIAL IVP ONE; Pre Op ABX Message 1 EACH MISC MISCELLANE ONE; SCOPOLAMINE 1.5MG/72HR PATCH TRANSDERM ONE
[2020-11-11] MEDS ORDERED: LACTATED RINGERS 1,000 ML IV ONE ×2 (11:42)
[2020-11-11 12:04] LABS: Glucose,Whole Blood 103 mg/dL (75-99)
[2020-11-11] MEDS ORDERED: BUPIVACAINE (PF) 0.25% 30 ML VIAL INTRAARTIC ONE ×3 (12:29→13:07)
[2020-11-11] MEDS ORDERED: ESMOLOL 100 MG/10 ML VIAL ONE (12:35)
[2020-11-11] MEDS ORDERED: SUCCINYLCHOLINE CHLORIDE 100 MG/5 ML SYR IV ONE (12:35)
[2020-11-11] MEDS ORDERED: MIDAZOLAM 2 MG/2 ML VIAL ONE (12:35)
[2020-11-11] MEDS ORDERED: LIDOCAINE 1% INJ 10MG/ML (20 ML MDV) ONE (12:35)
[2020-11-11] MEDS ORDERED: fentaNYL (PF) 50 MCG/ML 2 ML AMP ONE (12:35)
[2020-11-11] MEDS ORDERED: PROPOFOL 10 MG/ML 20 ML VIAL IV ONE (12:35)
[2020-11-11] MEDS ORDERED: SODIUM CHLORIDE 0.9% 100 ML with ceFAZolin 2,000 MG IV ONE ×2 (13:00)
--- NOTE | 2020-11-11 13:33 | P.OP ---
Date of Procedure: 11/11/20 Procedure(s) Performed: PREOPERATIVE DIAGNOSIS: 1. Right knee medial meniscus tear 2. Right knee osteoarthritis, patellofemoral POSTOPERATIVE DIAGNOSIS: 1. Right knee medial meniscus tear 2. Right knee osteoarthritis, patellofemoral, grade 2 PROCEDURES PERFORMED: 1. Right knee arthroscopy, with partial medial meniscectomy (25)%, oh superior horn 2. Right knee arthroscopic chondroplasty of patellofemoral compartment 2. Right knee arthroscopic partial synovectomy ANESTHESIA: director of estate: None COMPLICATIONS: none ESTIMATED BLOOD LOSS: Less than 10 ml DISPOSITION: To post-anesthesia care unit INDICATIONS: Amor is a 50-year-old male with a history of right knee pain on the medial side. He has a history of morbid obesity with a BMI of 51. MRI findings are suspicious for meniscus tear involving the posterior horn of the meniscus. Patient presents to the operating room today for arthroscopy with trimming of the meniscus or repair as necessary as well as possible chondroplasty or smoothing of the articular surfaces. I have explained the procedure in detail as well as potential risks and complications as being inclusive of but not limited to: Bleeding, infection, scarring, discomfort, blood vessel and/or nerve damage, failure to relieve symptoms, persistence or recurrence and/or worsening of symptoms, blood clot, pulmonary embolism, limp, , and other risks, including the need for knee replacement. The consent form has been signed. PROCEDURE: After appropriate consent was obtained, the patient was taken to the operating room and placed supine on the operating table. General anesthesia was initiated. The knee was examined under anesthesia. Medial collateral, lateral collateral, anterior and posterior cruciate ligaments were all intact. Range of motion was 0-120 with mild crepitus in the patellofemoral compartment. Mild effusion but no soft tissue swelling was noted. Prepping and draping of the operative knee was performed in the usual sterile fashion using ChloraPrep. Care was taken that all pressure points were adequately padded. Leg miner and pneumotourniquet were used. ``Time-out" was called according to JCAHO standards, confirming patient identity, surgical procedure, side, and antibiotic administration. Antibiotics were administered because he's got a recent diagnosis of diabetes for which he is now taking metformin. The surgical portals were placed directly next to the patellar tendon medially and laterally. Camera and instruments were carefully inserted into the knee and arthroscopy was performed. Patellofemoral joint was first inspected. Mild synovitis was seen, and was resected where it appeared particularly inflamed. Patellofemoral joint was noted to be mildly arthritic, with grade 2 changes present over less than 10%. Chondroplasty was performed using a shaver, removing unstable cartilage elements and smoothing the surface to eliminate step-off. Lateral compartment showed normal hyaline cartilage without defect. Lateral meniscus was visualized and probed, the anterior horn showing some mild degenerative fraying. Popliteal hiatus was normal. No loose bodies. Medial compartment was then examined. Medial meniscus tear was noted involving the posterior horn and appeared to be a degenerative horizontal cleavage-type tear with a radial component after visualization and probing. The meniscus tear was resected using a combination of basket forceps and shaver. Approximately 55 % of the meniscus was resected. The remaining meniscus was noted to be intact and stable. Medial compartment hyaline cartilage was mildly arthritic with grade 2 changes over most of the femoral condyle and tibial plateau. Small areas of fibrillated and unstable cartilage from the medial femoral condyle were removed using a shaver. Cruciate ligaments were noted to be intact. No loose bodies or ganglion cysts were noted around the cruciate ligaments. Medial and lateral gutters showed no evidence of loose bodies, but some mild synovitis was present and was resected with a shaver. Portals were then closed with 4-0 Monocryl suture. A quantity of Marcaine solution was injected into the knee and around the portal sites. Steri-Strips were applied and tourniquet was deflated. Sterile dressing and light compressive dressing was applied using Webril and IRMA wrap. Patient tolerated the procedure well and taken to recovery room in stable condition. Sponge and needle counts were correct.
[2020-11-11 14:06] VITALS: TEMP 96.8
[2020-11-11 14:21] VITALS: RESP 16
[2020-11-11 14:26] LABS: Glucose,Whole Blood 136 mg/dL (75-99)
[2020-11-11 15:05] VITALS: BP 119/77; PULSE 85
== END 2020-11-11 15:25 | disposition home or self-care (01) ==
LOC: OR 11:11
PROVIDERS: ATTEND Orthopaedic Surgery
DX: S83.241A Other tear of medial meniscus, current injury, right knee, initial encounter (principal); M17.11 Unilateral primary osteoarthritis, right knee; E66.01 Morbid (severe) obesity due to excess calories; Z68.43 Body mass index [BMI] 50.0-59.9, adult; M65.862 Other synovitis and tenosynovitis, left lower leg; I10 Essential (primary) hypertension; F32.9 Major depressive disorder, single episode, unspecified; E78.5 Hyperlipidemia, unspecified; E03.9 Hypothyroidism, unspecified; Z72.0 Tobacco use; Z83.3 Family history of diabetes mellitus; Z82.49 Family history of ischemic heart disease and other diseases of the circulatory system; Z79.899 Other long term (current) drug therapy
CPT/HCPCS: 29881; J2250; J1100; J2405; J0690; J2001; J3010; J0330; J2704

== ENCOUNTER → 2020-11-29 | Outpatient (CLI) | payer BC ==
--- NOTE | 2020-11-29 10:39 | US ---
EXAMINATION TYPE: US venous doppler duplex LE RT DATE OF EXAM: 11/29/2020 10:20 AM COMPARISON: NONE CLINICAL HISTORY: I80.9 Phlebitis and thrombophlebitis of unspecifie. no h/o dvt, calf pain during th e night, patient had recent knee procedure and felt a "pop" SIDE PERFORMED: Right TECHNIQUE: The lower extremity deep venous system is examined utilizing real time linear array sonog vandana with graded compression, doppler sonography and color-flow sonography. VESSELS IMAGED: Common Femoral Vein Deep Femoral Vein Greater Saphenous Vein * Femoral Vein Popliteal Vein Small Saphenous Vein * Proximal Calf Veins (* superficial vessels) Right Leg: Negative for DVT preliminary results relayed to occupational health and safety officer @[id number] IMPRESSION: No sonographic evidence for deep vein thrombosis of the right lower extremity seen.
== END | disposition home or self-care (01) ==
LOC: RADUSWWP 10:03
PROVIDERS: ATTEND Orthopaedic Surgery
DX: I80.9 Phlebitis and thrombophlebitis of unspecified site (principal); M79.661 Pain in right lower leg

== ENCOUNTER 2020-12-30 10:09 | Observation (INO) | payer BC ==
[2020-12-30] MEDS ORDERED: ASPIRIN 81 MG PO STA (10:55)
[2020-12-30] MEDS ORDERED: SODIUM CHLORIDE 0.9% 1,000 ML IV STA (10:55)
--- NOTE | 2020-12-30 10:58 | ED ---
General Adult HPI - General Chief complaint: Headache Stated complaint: Chest Pain/Headache Time Seen by Provider: 12/30/20 10:40 Source: patient, family, RN notes reviewed Mode of arrival: wheelchair Limitations: no limitations - History of Present Illness Initial comments: This a 50-year-old male presents emergency Department with multiple complaints. Patient states and Saturday started feel and which she states felt dehydrated did not year drink much at work. He states he recently returned back to work after being off for medical reasons. Patient states that he started having diarrhea yesterday which is now resolved but woke up today feeling more fatigued, very weak feeling states he had some cough and congestion some chest tightness he does admit that his daily smoker history of hypertension hyperlipidemia and diabetes. Patient states his diabetes is not well- controlled. Patient denies any abdominal pain and cramping this time no leg swelling. - Related Data Home Medications Medication Instructions Recorded Confirmed Venlafaxine HCl ER [Effexor XR] 150 mg PO HS 09/17/18 12/30/20 rOPINIRole HCL [Requip] 0.5 - 1 mg PO HS PRN 09/17/18 12/30/20 Levothyroxine Sodium [Synthroid] 25 mcg PO DAILY 04/29/20 12/30/20 hydroCHLOROthiazide [Hydrodiuril] 25 mg PO DAILY 04/29/20 12/30/20 metFORMIN HCL [Glucophage] 500 mg PO BID 11/09/20 12/30/20 Atorvastatin Calcium [Lipitor] 40 mg PO HS 12/30/20 12/30/20 Valsartan 320 mg PO DAILY 12/30/20 12/30/20 amLODIPine [Norvasc] 7.5 mg PO DAILY 12/30/20 12/30/20 Allergies Allergy/AdvReac Type Severity Reaction Status Date / Time No Known Allergies Allergy Verified 12/30/20 10:19 Review of Systems ROS Statement: Those systems with pertinent positive or pertinent negative responses have been documented in the HPI. ROS Other: All systems not noted in ROS Statement are negative. Past Medical History Past Medical History: Chest Pain / Angina, Diabetes Mellitus, GERD/Reflux, Hyperlipidemia, Hypertension, Sleep Apnea/CPAP/BIPAP, Thyroid Disorder Additional Past Medical History / Comment(s): 06/14/15 Pt presented to [facility] ER with dizziness, lightheaded since yesterday, has cpap. History of Any Multi-Drug Resistant Organisms: None Reported Past Surgical History: Heart Catheterization, Orthopedic Surgery Additional Past Surgical History / Comment(s): Catheterization yrs ago-normal, vasectomy, Right arm tendon reattached as child, right ankle fracture-surgery required twice., orthoscopic right knee Past Anesthesia/Blood Transfusion Reactions: No Reported Reaction Past Psychological History: Depression Smoking Status: Current every day smoker - Past Family History Father History Unknown: Yes Additional Family Medical History / Comment(s): Patient's father is alive at 65 years of age. Mother Family Medical History: Coronary Artery Disease (CAD), Myocardial Infarction ([place]) Additional Family Medical History / Comment(s): Mother of a [place] at age 61 yrs. General Exam Limitations: no limitations General appearance: alert, in no apparent distress Head exam: Present: atraumatic, normocephalic, normal inspection Eye exam: Present: normal appearance, PERRL, EOMI. Absent: scleral icterus, conjunctival injection, periorbital swelling ENT exam: Present: normal exam, normal oropharynx, mucous membranes moist Neck exam: Present: normal inspection, full ROM. Absent: tenderness, meningismus, lymphadenopathy Respiratory exam: Present: wheezes (Wheezing on the left). Absent: normal lung sounds bilaterally, respiratory distress, rales, rhonchi, stridor Cardiovascular Exam: Present: regular rate, normal rhythm, normal heart sounds. Absent: systolic murmur, diastolic murmur, rubs, gallop, clicks Back exam: Absent: CVA tenderness (R), CVA tenderness (L) Neurological exam: Present: alert, oriented X3 Skin exam: Present: warm, dry, intact, normal color. Absent: rash Course Vital Signs 12/30/20 12/30/20 12/30/20 10:14 11:42 14:59 Temperature 97.9 F Pulse Rate 93 89 80 Respiratory 18 18 18 Rate Blood Pressure 147/93 159/74 149/88 O2 Sat by Pulse 97 99 95 Oximetry EKG Findings - EKG Comments: EKG Findings:: EKG performed at 10:30 normal sinus rhythm rate of 88 UT 152 QRS 98 QT/QTC 368/445 Medical Decision Making - Medical Decision Making 50-year-old for complaint T, chest discomfort exertional dyspnea, GI symptoms. Patient's symptoms related to viral though there is some mild changes on troponin on second draw Patient will be admitted for cardiac evaluation. - Lab Data Result diagrams: 12/30/20 11:22 12/30/20 11:22 Lab Results 12/30/20 12/30/20 12/30/20 Range/Units 11:22 11:22 11:22 WBC 6.3 (3.8-10.6) k/uL RBC 4.80 (4.30-5.90) m/uL Hgb 15.5 (13.0-17.5) gm/dL Hct 45.8 (39.0-53.0) % MCV 95.5 (80.0-100.0) fL MCH 32.3 (25.0-35.0) pg MCHC 33.8 (31.0-37.0) g/dL RDW 13.5 (11.5-15.5) % Plt Count 207 (150-450) k/uL MPV 7.2 Neutrophils % 68 % Lymphocytes % 23 % Monocytes % 5 % Eosinophils % 2 % Basophils % 1 % Neutrophils # 4.3 (1.3-7.7) k/uL Lymphocytes # 1.4 (1.0-4.8) k/uL Monocytes # 0.3 (0-1.0) k/uL Eosinophils # 0.1 (0-0.7) k/uL Basophils # 0.0 (0-0.2) k/uL PT 9.4 (9.0-12.0) sec INR 0.8 (<1.2) APTT 22.1 (22.0-30.0) sec D-Dimer (<0.60) mg/L FEU Sodium 139 (137-145) mmol/L Potassium 3.7 (3.5-5.1) mmol/L Chloride 104 (98-107) mmol/L Carbon Dioxide 28 (22-30) mmol/L Anion Gap 7 mmol/L BUN 11 (9-20) mg/dL Creatinine 0.75 (0.66-1.25) mg/dL Est GFR (CKD-EPI)AfAm >90 (>60 ml/min/1.73 sqM) Est GFR (CKD-EPI)NonAf >90 (>60 ml/min/1.73 sqM) Glucose 118 H (74-99) mg/dL Calcium 9.0 (8.4-10.2) mg/dL Magnesium 2.0 (1.6-2.3) mg/dL Total Bilirubin 0.4 (0.2-1.3) mg/dL AST 27 (17-59) U/L ALT 42 (4-49) U/L Alkaline Phosphatase 130 H (38-126) U/L Troponin I (0.000-0.034) ng/mL Total Protein 6.8 (6.3-8.2) g/dL Albumin 4.0 (3.5-5.0) g/dL Lipase 123 (23-300) U/L Urine Color Urine Appearance (Clear) Urine pH (5.0-8.0) Ur Specific Franklin (1.001-1.035) Urine Protein (Negative) Urine Glucose (UA) (Negative) Urine Ketones (Negative) Urine Blood (Negative) Urine Nitrite (Negative) Urine Bilirubin (Negative) Urine Urobilinogen (<2.0) mg/dL Ur Leukocyte Esterase (Negative) Urine RBC (0-5) /hpf Urine WBC (0-5) /hpf Ur Squamous Epith Cells (0-4) /hpf Hyaline Casts (0-2) /lpf Urine Mucus (None) /hpf Coronavirus (PCR) (Not Detectd) 12/30/20 12/30/20 12/30/20 Range/Units 11:22 11:22 11:40 WBC (3.8-10.6) k/uL RBC (4.30-5.90) m/uL Hgb (13.0-17.5) gm/dL Hct (39.0-53.0) % MCV (80.0-100.0) fL MCH (25.0-35.0) pg MCHC (31.0-37.0) g/dL RDW (11.5-15.5) % Plt Count (150-450) k/uL MPV Neutrophils % % Lymphocytes % % Monocytes % % Eosinophils % % Basophils % % Neutrophils # (1.3-7.7) k/uL Lymphocytes # (1.0-4.8) k/uL Monocytes # (0-1.0) k/uL Eosinophils # (0-0.7) k/uL Basophils # (0-0.2) k/uL PT (9.0-12.0) sec INR (<1.2) APTT (22.0-30.0) sec D-Dimer 0.80 H (<0.60) mg/L FEU Sodium (137-145) mmol/L Potassium (3.5-5.1) mmol/L Chloride (98-107) mmol/L Carbon Dioxide (22-30) mmol/L Anion Gap mmol/L BUN (9-20) mg/dL Creatinine (0.66-1.25) mg/dL Est GFR (CKD-EPI)AfAm (>60 ml/min/1.73 sqM) Est GFR (CKD-EPI)NonAf (>60 ml/min/1.73 sqM) Glucose (74-99) mg/dL Calcium (8.4-10.2) mg/dL Magnesium (1.6-2.3) mg/dL Total Bilirubin (0.2-1.3) mg/dL AST (17-59) U/L ALT (4-49) U/L Alkaline Phosphatase (38-126) U/L Troponin I <0.012 (0.000-0.034) ng/mL Total Protein (6.3-8.2) g/dL Albumin (3.5-5.0) g/dL Lipase (23-300) U/L Urine Color Urine Appearance (Clear) Urine pH (5.0-8.0) Ur Specific [place] (1.001-1.035) Urine Protein (Negative) Urine Glucose (UA) (Negative) Urine Ketones (Negative) Urine Blood (Negative) Urine Nitrite (Negative) Urine Bilirubin (Negative) Urine Urobilinogen (<2.0) mg/dL Ur Leukocyte Esterase (Negative) Urine RBC (0-5) /hpf Urine WBC (0-5) /hpf Ur Squamous Epith Cells (0-4) /hpf Hyaline Casts (0-2) /lpf Urine Mucus (None) /hpf Coronavirus (PCR) Not Detected (Not Detectd) 12/30/20 12/30/20 Range/Units 13:14 14:18 WBC (3.8-10.6) k/uL RBC (4.30-5.90) m/uL Hgb (13.0-17.5) gm/dL Hct (39.0-53.0) % MCV (80.0-100.0) fL MCH (25.0-35.0) pg MCHC (31.0-37.0) g/dL RDW (11.5-15.5) % Plt Count (150-450) k/uL MPV Neutrophils % % Lymphocytes % % Monocytes % % Eosinophils % % Basophils % % Neutrophils # (1.3-7.7) k/uL Lymphocytes # (1.0-4.8) k/uL Monocytes # (0-1.0) k/uL Eosinophils # (0-0.7) k/uL Basophils # (0-0.2) k/uL PT (9.0-12.0) sec INR (<1.2) APTT (22.0-30.0) sec D-Dimer (<0.60) mg/L FEU Sodium (137-145) mmol/L Potassium (3.5-5.1) mmol/L Chloride (98-107) mmol/L Carbon Dioxide (22-30) mmol/L Anion Gap mmol/L BUN (9-20) mg/dL Creatinine (0.66-1.25) mg/dL Est GFR (CKD-EPI)AfAm (>60 ml/min/1.73 sqM) Est GFR (CKD-EPI)NonAf (>60 ml/min/1.73 sqM) Glucose (74-99) mg/dL Calcium (8.4-10.2) mg/dL Magnesium (1.6-2.3) mg/dL Total Bilirubin (0.2-1.3) mg/dL AST (17-59) U/L ALT (4-49) U/L Alkaline Phosphatase (38-126) U/L Troponin I 0.016 (0.000-0.034) ng/mL Total Protein (6.3-8.2) g/dL Albumin (3.5-5.0) g/dL Lipase (23-300) U/L Urine Color Yellow Urine Appearance Clear (Clear) Urine pH 5.5 (5.0-8.0) Ur Specific [place] 1.034 (1.001-1.035) Urine Protein 1+ H (Negative) Urine Glucose (UA) Negative (Negative) Urine Ketones 1+ H (Negative) Urine Blood Trace H (Negative) Urine Nitrite Negative (Negative) Urine Bilirubin Negative (Negative) Urine Urobilinogen 4.0 (<2.0) mg/dL Ur Leukocyte Esterase Negative (Negative) Urine RBC 3 (0-5) /hpf Urine WBC 1 (0-5) /hpf Ur Squamous Epith Cells <1 (0-4) /hpf Hyaline Casts 3 H (0-2) /lpf Urine Mucus Rare H (None) /hpf Coronavirus (PCR) (Not Detectd) Disposition Clinical Impression: Chest pain, Exertional dyspnea, Fatigue Disposition: ADMITTED IP TO THIS [facility] Condition: Fair Referrals: Magnus Nj DO [Primary Care Provider] - 1-2 days
[2020-12-30 11:33] LABS: Basophils % (A) 1 %; Eosinophils # (A) 0.1 k/uL (0-0.7); Eosinophils % (A) 2 %; HCT 45.8 % (39.0-53.0); HGB 15.5 gm/dL (13.0-17.5); Lymphocytes # (A) 1.4 k/uL (1.0-4.8); Lymphocytes % (A) 23 %; MCH 32.3 pg (25.0-35.0); MCHC 33.8 g/dL (31.0-37.0); MCV 95.5 fL (80.0-100.0); Mean Platelet Volume 7.2; Monocytes # (A) 0.3 k/uL (0-1.0); Monocytes % (A) 5 %; Neutrophils # (A) 4.3 k/uL (1.3-7.7); Neutrophils % (A) 68 %; Platelet Count 207 k/uL (150-450); RDW 13.5 % (11.5-15.5); WBC 6.3 k/uL (3.8-10.6)
--- NOTE | 2020-12-30 11:35 | XR ---
EXAMINATION TYPE: XR chest 2V DATE OF EXAM: 12/30/2020 COMPARISON: Chest x-ray May 09, 2020 HISTORY: Chest pain. TECHNIQUE: Frontal and lateral views of the chest are obtained. FINDINGS: There is no focal air space opacity, pleural effusion, or pneumothorax seen. The cardiac silhouette size is within normal limits. The osseous structures are intact. Overlying EKG leads red emonstrated. IMPRESSION: No acute process. No significant change from prior.
[2020-12-30 11:47] LABS: ALT 42 U/L (4-49); AST 27 U/L (17-59); African American GFR (CKD) >90 (>60 ml/min/1.73 sqM); Alkaline Phosphatase 130 U/L (38-126); Anion Gap 7 mmol/L; Blood Urea Nitrogen 11 mg/dL (9-20); Carbon Dioxide 28 mmol/L (22-30); Chloride 104 mmol/L (98-107); Glucose 118 mg/dL (74-99); Lipase 123 U/L (23-300); Non-African American GFR(CKD) >90 (>60 ml/min/1.73 sqM); Potassium 3.7 mmol/L (3.5-5.1); Sodium 139 mmol/L (137-145); Total Bilirubin 0.4 mg/dL (0.2-1.3); Total Protein 6.8 g/dL (6.3-8.2)
[2020-12-30 11:58] LABS: INR 0.8 (<1.2); Partial Thromboplastin Time 22.1 sec (22.0-30.0); Prothrombin Time 9.4 sec (9.0-12.0)
[2020-12-30 13:23] LABS: Appearance,Urine Clear (Clear); Bilirubin,Urine Negative (Negative); Blood,Urine Trace (Negative); Color,Urine Yellow; Glucose,Urine (UA) Negative (Negative); Hyaline Casts,Urine 3 /lpf (0-2); Ketones,Urine 1+ (Negative); Leukocyte Esterase,Urine Negative (Negative); Mucus,Urine Rare /hpf; Nitrite,Urine Negative (Negative); PH, Urine 5.5 (5.0-8.0); Protein,Urine 1+ (Negative); RBC,Urine 3 /hpf (0-5); Specific Gravity,Urine 1.034 (1.001-1.035); Squamous Epithelial Cell,Urine <1 /hpf (0-4); WBC,Urine 1 /hpf (0-5)
[2020-12-30] MEDS ORDERED: SODIUM CHLORIDE 0.9% 1,000 ML IV ONE (14:25)
--- NOTE | 2020-12-30 14:39 | CT ---
EXAMINATION TYPE: CT chest angio for PE DATE OF EXAM: 12/30/2020 COMPARISON: Radiograph same day HISTORY: 50-year-old male Chest pain and shortness of breath TECHNIQUE: Contiguous axial scanning of the chest performed with IV Contrast, patient injected with 1 00 mL of Isovue 370. Coronal/sagittal MIP reconstructions performed. CT DLP: 938.5 mGycm Automated exposure control for dose reduction was used. FINDINGS: Heart normal size without pericardial effusion. Prominent epicardial fat pad. Borderline ectatic ascending aorta at 3.6 cm. Prominent motion artifact. Conventional arch vessel bra nching anatomy. Lymph node in the upper right trachea esophageal recess measures 1.3 cm. Additional scattered lymph n odes are present throughout the mediastinum measuring up to 1.2 cm left paratracheal. Other lymph nod es are nonenlarged. No other satisfactory opacification of the pulmonary arterial system, there is excessive breathing mo tion artifact limiting the evaluation. No large central or definite lobar branch pulmonary embolus. S egmental and more distal arterial branches many of which are nondiagnostic. Mild diffuse bronchial wall thickening. No pascale consolidation or pleural effusion. The degree of stefan athing motion artifact limits assessment for small pulmonary nodules. Visualized upper abdomen shows prominent breathing motion. Bones: [facility] within the mid to lower thoracic spine. IMPRESSION: 1. THE PATIENT IS BREATHING DURING THE SCAN. NO LARGE CENTRAL OR DEFINITE LOBAR BRANCH EMBOLUS. MANY OF THE SEGMENTAL AND MORE DISTAL ARTERIAL BRANCHES ARE NONDIAGNOSTIC AND EMBOLI IN THESE LOCATIONS CA NNOT BE EXCLUDED ON THE BASIS OF THIS EXAM. 2. MILD DIFFUSE WALL THICKENING COULD REPRESENT BRONCHITIS OR ASTHMA. 3. SOME BORDERLINE TO MILDLY ENLARGED MEDIASTINAL LYMPH NODES MEASURING UP TO 1.3 CM MAY BE REACTIVE/ POST INFLAMMATORY. 3 MONTH FOLLOW-UP CT CHEST TO ENSURE STABILITY/RESOLUTION.
[2020-12-30] MEDS ORDERED: NITROGLYCERIN SL TABS 0.4 MG TAB SUBLINGUAL PRN (15:07)
[2020-12-30] MEDS ORDERED: MELATONIN 3 MG TABLET PO PRN (15:59)
[2020-12-30] MEDS ORDERED: ACETAMINOPHEN TAB 325 MG TAB PO PRN (15:59)
[2020-12-30] MEDS ORDERED: MAGNESIUM HYDROXIDE 2,400 MG/10 ML CUP PO PRN (15:59)
[2020-12-30] MEDS ORDERED: CALCIUM CARBONATE 500 MG CHEWABLE PO PRN (15:59)
[2020-12-30] MEDS ORDERED: ALPRAZolam 0.25 MG TAB PO PRN (15:59)
[2020-12-30] MEDS ORDERED: ONDANSETRON 4 MG/2 ML VIAL IVP PRN (15:59)
[2020-12-30] MEDS ORDERED: LACTULOSE 20 GM/30 ML CUP PO PRN (15:59)
[2020-12-30] MEDS ORDERED: MAG HYDROX/AL HYDROX/SIMETH 30 ML CUP PO PRN (15:59)
[2020-12-30] MEDS ORDERED: NALOXONE 0.4 MG/ML 1 ML VIAL IV PRN (15:59)
[2020-12-30 17:30] LABS: Glucose,Whole Blood 83 mg/dL (75-99)
[2020-12-30] MEDS: INSULIN ASPART (NovoLOG) 100 UNIT/ML VIAL SQ SCH ×2 (17:49→20:14)
--- NOTE | 2020-12-30 17:56 | P.HPIM ---
History of Present Illness H&P Date: 12/30/20 Chief Complaint: Chest pain History of presenting complaint: This is a pleasant 50-year-old patient, follows with Dr. Nj. Chronic stable medical conditions include diabetes, GERD, hypertension, hyperlipidemia, hypothyroid, obstructive sleep apnea uses CPAP. Patient's had a prior cardiac catheterization that was normal. Patient is a smoker. Patient this morning not iced left precordial pressure. Present off and on since morning. Had some associated dizziness or lightheadedness. Slight headache. No radiation. Patient felt he was dehydrated work 2 days ago. Also some diarrhea 2 days ago in the evening and yesterday morning. Has felt dehydrated tired. Patient had a stress test earlier this year. Reportedly negative by Dr. Johnson. His appetite has been down since yesterday. Finding slightly hungry now. Patient also has a ulcer on the plantar aspect of the right small finger. For about a week 10 days. No fever no chills. It hurts to step on it. No drainage. Patient also feels that his urine has been strong colored. Review of systems: GEN.: Tired EYES: None HEENT: None NECK: None RESPIRATORY: None CARDIOVASCULAR: As above GASTROINTESTINAL: None GENITOURINARY: None MUSCULOSKELETAL: None LYMPHATICS: None HEMATOLOGICAL: None PSYCHIATRY: None NEUROLOGICAL: None Past medical history to include: Diabetes, GERD, hypertension, hyperlipidemia, hypothyroid, obstructive sleep apnea uses CPAP Social history: Smoking a pack a day for close to 33 years. 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 Added. No alcohol. Denies drugs. Family history: CAD Physical examination: VITAL SIGNS: 98.2, 73, 18, 141/85, 91% room air GENERAL: BMI 50.2, declining bed, awake, tired. EYES: Pupils equal. Conjunctiva normal. HEENT: External appearance of nose and ears normal, oral cavity grossly normal. NECK: JVD not raised; masses not palpable. HEART: First and second heart sounds are normal; no edema. LUNGS: Respiratory rate normal; clear to auscultation. ABDOMEN: Soft, nontender, liver spleen not palpable, no masses palpable. PSYCH: Alert and oriented x3; mood and affect normal. EXTREMITY: Ulcer on the plantar aspect of the right little finger. Tender. Dry. No drainage. NEUROLOGICAL: Cranial nerves grossly intact; no facial asymmetry, power and sensation grossly intact. LYMPHATICS: No lymph nodes palpable in the axilla and neck INVESTIGATIONS, reviewed in the clinical context: WBC 6.3 hemoglobin 15.5 platelets 207 potassium 3.7 BUN 11 creatinine 0.75 Troponin I 3 negative UA positive for protein 1+ ketones 1+ Coronavirus [PCR]: Not detected EKG tracing personally reviewed by me-normal sinus rhythm, incomplete right bundle branch block Chest CTA: No obvious PE. Chest x-ray film personally reviewed by me-no obvious infiltrates Assessment and plan: -Left precordial pain. Noncardiac sounding. But patient has risk factors. Including diabetes, hypertension, hyperlipidemia, smoking. And a positive family history. Patient did have a cardiac catheterization a few years ago that was negative. Stress test earlier in the year was reportedly negative. Aspirin. Telemetry. Cardiology consult. -Clinical dehydration from patient having diarrhea and decreased oral intake for last 2 days. IV fluids -Hypothyroid Synthroid 25 g a day -Essential hypertension Valsartan 320 mg daily, amlodipine 7.5 daily -Hyperlipidemia 40 mg daily at bedtime -Restless leg syndrome On Requip -Morbid obesity BMI 50.2 Weight loss measures. Follow-up with PCP -Nicotine dependence, sitting smoking Nicotine patch -Right small toe, ulcer secondary to diabetes and the plantar aspect. Patient has no fever, no white count and no drainage. Keflex 500 mg by mouth 4 times a day for 7 days -Depression not otherwise specified Effexor XL 150 mg daily at bedtime Serial cardiac enzymes were done. Telemetry. Home medications resumed. IV fluids. 2-D echocardiogram. Cartilage in consultation. Follow Accu-Cheks. Care was discussed with the patient. Questions answered. Past Medical History Past Medical History: Chest Pain / Angina, Diabetes Mellitus, GERD/Reflux, Hyperlipidemia, Hypertension, Sleep Apnea/CPAP/BIPAP, Thyroid Disorder Additional Past Medical History / Comment(s): 06/14/15 Pt presented to [facility] ER with dizziness, lightheaded since yesterday, has cpap. History of Any Multi-Drug Resistant Organisms: None Reported Past Surgical History: Heart Catheterization, Orthopedic Surgery Additional Past Surgical History / Comment(s): Catheterization yrs ago-normal, vasectomy, Right arm tendon reattached as child, right ankle fracture-surgery required twice., orthoscopic right knee Past Anesthesia/Blood Transfusion Reactions: No Reported Reaction Past Psychological History: Depression Additional Psychological History / Comment(s): Pt resides with his spouse of 20 yrs and 4 children ranging in ages from 1 yr old to 18 yr old. He uses no assistive device. He drives. Smoking Status: Current every day smoker Past Alcohol Use History: None Reported Additional Past Alcohol Use History / Comment(s): Pt. denies alcohol and drug use currently or a past history. Past Drug Use History: None Reported - Past Family History Father History Unknown: Yes Additional Family Medical History / Comment(s): Patient's father is alive at 65 years of age. Mother Family Medical History: Coronary Artery Disease (CAD), Myocardial Infarction ([place]) Additional Family Medical History / Comment(s): Mother of a [place] at age 61 yrs. Medications and Allergies Home Medications Medication Instructions Recorded Confirmed Type Venlafaxine HCl ER [Effexor XR] 150 mg PO HS 09/17/18 12/30/20 History rOPINIRole HCL [Requip] 0.5 - 1 mg PO HS PRN 09/17/18 12/30/20 History Levothyroxine Sodium [Synthroid] 25 mcg PO DAILY 04/29/20 12/30/20 History hydroCHLOROthiazide [Hydrodiuril] 25 mg PO DAILY 04/29/20 12/30/20 History metFORMIN HCL [Glucophage] 500 mg PO BID 11/09/20 12/30/20 History Atorvastatin Calcium [Lipitor] 40 mg PO HS 12/30/20 12/30/20 History Valsartan 320 mg PO DAILY 12/30/20 12/30/20 History amLODIPine [Norvasc] 7.5 mg PO DAILY 12/30/20 12/30/20 History Allergies Allergy/AdvReac Type Severity Reaction Status Date / Time No Known Allergies Allergy Verified 12/30/20 10:19 Physical Exam Vitals: Vital Signs Temp Pulse Pulse Resp BP BP Pulse Ox 12/30/20 16:32 98.2 F 73 18 141/85 91 L 12/30/20 14:59 80 18 149/88 95 12/30/20 11:42 89 18 159/74 99 12/30/20 10:14 97.9 F 93 18 147/93 97 Intake and Output 12/30/20 12/30/20 12/30/20 06:59 14:59 22:59 Other: Voiding Method Toilet Weight 149.685 kg 149.685 kg Results CBC & Chem 7: 12/30/20 11:22 12/30/20 11:22 Labs: Abnormal Lab Results - Last 24 Hours (Table) 12/30/20 12/30/20 12/30/20 Range/Units 11:22 11:22 13:14 D-Dimer 0.80 H (<0.60) mg/L FEU Glucose 118 H (74-99) mg/dL Alkaline Phosphatase 130 H (38-126) U/L Urine Protein 1+ H (Negative) Urine Ketones 1+ H (Negative) Urine Blood Trace H (Negative) Hyaline Casts 3 H (0-2) /lpf Urine Mucus Rare H (None) /hpf Thrombosis Risk Factor Assmnt - Choose All That Apply Each Factor Represents 1 point: Age 41-60 years Thrombosis Risk Factor Assessment Total Risk Factor Score: 1 Thrombosis Risk Factor Assessment Level: Low Risk
[2020-12-30] MEDS: CEPHALEXIN 500 MG CAP PO SCH ×2 (18:05→20:36)
[2020-12-30] MEDS: LACTATED RINGERS 1,000 ML IV SCH (18:05)
[2020-12-30] MEDS: NICOTINE 21MG/24HR PATCH TRANSDERM SCH (18:05)
[2020-12-30 20:03] LABS: Glucose,Whole Blood 99 mg/dL (75-99)
[2020-12-30] MEDS: metFORMIN 500 MG TAB PO SCH (20:35)
[2020-12-30] MEDS ORDERED: ATORVASTATIN 40 MG TAB PO SCH (21:00)
[2020-12-30] MEDS ORDERED: VENLAFAXINE HCL ER 150 MG CAP PO SCH (21:00)
[2020-12-31] MEDS: LACTATED RINGERS 1,000 ML IV SCH ×2 (02:17→10:16)
[2020-12-31] MEDS ORDERED: LEVOTHYROXINE 25 MCG TAB PO SCH (06:30)
[2020-12-31 07:15] LABS: Glucose,Whole Blood 113 mg/dL (75-99)
[2020-12-31] MEDS: INSULIN ASPART (NovoLOG) 100 UNIT/ML VIAL SQ SCH ×2 (07:50→12:04)
[2020-12-31] MEDS: NICOTINE 21MG/24HR PATCH TRANSDERM SCH (07:58)
[2020-12-31] MEDS ORDERED: ASPIRIN 325 MG TAB PO SCH (09:00)
[2020-12-31] MEDS ORDERED: VALSARTAN 160 MG TAB PO SCH (09:00)
[2020-12-31] MEDS ORDERED: amLODIPine 2.5 MG TAB PO SCH (09:00)
[2020-12-31 10:09] LABS: Chol/HDL Ratio 4.97; LDL Cholesterol,Calculated 119.6 mg/dL (0.0-131.0); VLDL Calculation 23.4 mg/dL (5.00-40.00)
[2020-12-31] MEDS: metFORMIN 500 MG TAB PO SCH (10:15)
[2020-12-31] MEDS: CEPHALEXIN 500 MG CAP PO SCH ×2 (10:16→13:01)
[2020-12-31 12:02] LABS: Glucose,Whole Blood 91 mg/dL (75-99)
[2020-12-31 12:45] VITALS: BMI 50.1
--- NOTE | 2020-12-31 12:46 | P.CRDCN ---
History of Present Illness Consult date: 12/31/20 Requesting physician: Jax Weir Reason for Consult (text): Chest pain Consult reason: chest pain Chief complaint: Chest pain, fatigue, exertional dyspnea History of present illness: This is Jasper Sanchez NP dictating a consult on this patient on behalf of Dr. Beckham. The patient was interviewed and examined. HPI: Patient is a 50-year-old male with a past medical history includes diabetes which was newly diagnosed this year, GERD, hypertension, hyperlipidemia, hypothyroid, obstructive sleep apnea with CPAP use. Patient's past echocardiogram performed to 09/29/2020 showed an EF of 50-55%. Stress test performed 07/14/2020 was negative. Patient's also a smoker. There is presented to the hospital after experiencing chest pressure and some pain, with si gnificant fatigue and shortness of breath. Patient stated that he felt that he was dehydrated after working. He also reports a history of muscle aches, diarrhea, and slight fever. Patient stated that once he realized the pain and fatigue was not going to go away he did present to the ER for evaluation. After initial hospitalization patient does report that his chest pain has gone away, but is now more of a discomfort. ROS: [No fever, chills, or rigors] [no cough, phlegm, or expectoration] [no nausea, vomiting, or diarrhea] [no hematuria, dysuria] [no musculoskelatal complaints] [no strokes or seizures] [no skin lesions] EXAMINATION: CARDIOVASCULAR: Heart is regular rate and rhythm, no clicks, murmurs, or rubs noted. No peripheral edema noted. Peripheral pulses are present and palpable. LUNGS: Mild expiratory wheeze in the left mid and lower lung trejo, otherwise no other adventitious sounds noted. Chest expansion is equal. No accessory muscle use. REVIEW OF LABS, ECG & MEDICAL DATA: LABS: Hemoglobin 15.5, PT 9.4, INR 0.8, APTT 22.1, d-dimer 0.80, sodium 139, potassium 3.7, magnesium 2.0, serial troponins 3 less than 0.012, triglycerides 117, cholesterol 179, LDL 119.6, HDL 36.0. EKG: Normal sinus rhythm ECHO: Ordered, results pending CTA: No pulmonary embolus IMPRESSION/PLAN: 1. Atypical chest pain Patient currently has no evidence of cardiac etiology or ischemia. Echocardiogram has been ordered and will be evaluated. Past stress test in July demonstrated no ischemia, echocardiogram in June showed ejection fraction of 50-55%. It is felt this time that the etiology of his pain, weakness, and fatigue are due to a viral etiology. Thank you for this consult allowing us to follow with this patient. Past Medical History Past Medical History: Chest Pain / Angina, Diabetes Mellitus, GERD/Reflux, Hyperlipidemia, Hypertension, Sleep Apnea/CPAP/BIPAP, Thyroid Disorder Additional Past Medical History / Comment(s): 06/14/15 Pt presented to [facility] ER with dizziness, lightheaded since yesterday, has cpap. History of Any Multi-Drug Resistant Organisms: None Reported Past Surgical History: Heart Catheterization, Orthopedic Surgery Additional Past Surgical History / Comment(s): Catheterization yrs ago-normal, vasectomy, Right arm tendon reattached as child, right ankle fracture-surgery required twice., orthoscopic right knee Past Anesthesia/Blood Transfusion Reactions: No Reported Reaction Past Psychological History: Depression Additional Psychological History / Comment(s): Pt resides with his spouse of 20 yrs and 4 children ranging in ages from 1 yr old to 18 yr old. He uses no assistive device. He drives. Smoking Status: Current every day smoker Past Alcohol Use History: None Reported Additional Past Alcohol Use History / Comment(s): Pt. denies alcohol and drug use currently or a past history. Past Drug Use History: None Reported - Past Family History Father History Unknown: Yes Additional Family Medical History / Comment(s): Patient's father is alive at 65 years of age. Mother Family Medical History: Coronary Artery Disease (CAD), Myocardial Infarction (ND) Additional Family Medical History / Comment(s): Mother of a ND at age 61 yrs. Medications and Allergies Home Medications Medication Instructions Recorded Confirmed Type Venlafaxine HCl ER [Effexor XR] 150 mg PO HS 09/17/18 12/30/20 History rOPINIRole HCL [Requip] 0.5 - 1 mg PO HS PRN 09/17/18 12/30/20 History Levothyroxine Sodium [Synthroid] 25 mcg PO DAILY 04/29/20 12/30/20 History hydroCHLOROthiazide [Hydrodiuril] 25 mg PO DAILY 04/29/20 12/30/20 History metFORMIN HCL [Glucophage] 500 mg PO BID 11/09/20 12/30/20 History Atorvastatin Calcium [Lipitor] 40 mg PO HS 12/30/20 12/30/20 History Valsartan 320 mg PO DAILY 12/30/20 12/30/20 History amLODIPine [Norvasc] 7.5 mg PO DAILY 12/30/20 12/30/20 History Allergies Allergy/AdvReac Type Severity Reaction Status Date / Time No Known Allergies Allergy Verified 12/30/20 10:19 Physical Exam Vitals: Vital Signs Temp Pulse Pulse Resp BP BP Pulse Ox 12/31/20 07:00 97.9 F 77 16 137/73 96 12/31/20 01:58 98.5 F 69 18 135/84 93 L 12/31/20 01:50 88 12/30/20 20:00 77 20 12/30/20 19:28 98.6 F 77 20 156/78 94 L 12/30/20 16:32 98.2 F 73 18 141/85 91 L 12/30/20 14:59 80 18 149/88 95 Intake and Output 12/30/20 12/31/20 12/31/20 22:59 06:59 14:59 Other: Voiding Method Toilet Toilet # Voids 3 3 Weight 149.685 kg Results 12/30/20 11:22 12/30/20 11:22 Cardiac Enzymes 12/30/20 12/30/20 12/30/20 Range/Units 14:18 16:46 18:49 Troponin I 0.016 <0.012 <0.012 (0.000-0.034) ng/mL Lipids 12/30/20 Range/Units 11:22 Triglycerides 117.0 (0.0-149.0) mg/dL Cholesterol 179 (0-200) mg/dL HDL Cholesterol 36.0 L (40.0-60.0) mg/dL Cholesterol/HDL Ratio 4.97 Current Medications Generic Name Dose Route Start Last Admin Trade Name Freq PRN Reason Stop Dose Admin Acetaminophen 650 mg 12/30/20 15:59 Acetaminophen Tab 325 Mg Tab PO Q6HR PRN Mild Pain or Fever > 100.5 Al Hydroxide/Mg Hydroxide 15 ml 12/30/20 15:59 Mag Hydrox/Al Hydrox/Simeth 30 Ml Cup PO Q6HR PRN Indigestion Alprazolam 0.25 mg 12/30/20 15:59 Alprazolam 0.25 Mg Tab PO Q6HR PRN Anxiety Amlodipine Besylate 7.5 mg 12/31/20 09:00 12/31/20 10:15 Amlodipine 2.5 Mg Tab PO 7.5 mg DAILY COLLEEN Administration Aspirin 325 mg 12/31/20 09:00 12/31/20 10:15 Aspirin 325 Mg Tab PO 325 mg DAILY COLLEEN Administration Atorvastatin Calcium 40 mg 12/30/20 21:00 12/30/20 20:35 Atorvastatin 40 Mg Tab PO 40 mg HS COLLEEN Administration Calcium Carbonate/Glycine 1,000 mg 12/30/20 15:59 Calcium Carbonate 500 Mg Chewable PO Q4HR PRN Dyspepsia Cephalexin 500 mg 12/30/20 18:00 12/31/20 10:16 Cephalexin 500 Mg Cap PO 500 mg QID COLLEEN Administration Lactated Ringer's 1,000 mls @ 125 mls/hr 12/30/20 17:45 12/31/20 10:16 Lactated Ringers IV 125 mls/hr .Q8H COLLEEN Administration Insulin Aspart 0 unit 12/30/20 17:30 12/31/20 12:04 Insulin Aspart (Novolog) 100 Unit/Ml Vial SQ Not Given ACHS [facility] Protocol Lactulose 20 gm 12/30/20 15:59 Lactulose 20 Gm/30 Ml Cup PO DAILY PRN Constipation Levothyroxine Sodium 25 mcg 12/31/20 06:30 12/31/20 05:37 Levothyroxine 25 Mcg Tab PO 25 mcg 0630 COLLEEN Administration Magnesium Hydroxide 2,400 mg 12/30/20 15:59 Magnesium Hydroxide 2,400 Mg/10 Ml Cup PO DAILY PRN Constipation Melatonin 3 mg 12/30/20 15:59 Melatonin 3 Mg Tablet PO HS PRN Insomnia Metformin HCl 500 mg 12/30/20 21:00 12/31/20 10:15 Metformin 500 Mg Tab PO 500 mg BID COLLEEN Administration Naloxone HCl 0.2 mg 12/30/20 15:59 Naloxone 0.4 Mg/Ml 1 Ml Vial IV Q2M PRN Opioid Reversal Nicotine 1 patch 12/30/20 18:00 12/31/20 07:58 Nicotine 21mg/24hr Patch TRANSDERM Not Given DAILY COLLEEN Nitroglycerin 0.4 mg 12/30/20 15:07 Nitroglycerin Sl Tabs 0.4 Mg Tab SUBLINGUAL Q5M PRN Chest Pain Ondansetron HCl 4 mg 12/30/20 15:59 Ondansetron 4 Mg/2 Ml Vial IVP Q8HR PRN Nausea And Vomiting Valsartan 320 mg 12/31/20 09:00 12/31/20 10:16 Valsartan 160 Mg Tab PO 320 mg DAILY COLLEEN Administration Venlafaxine HCl 150 mg 12/30/20 21:00 12/30/20 20:36 Venlafaxine Hcl Er 150 Mg Cap PO 150 mg HS COLLEEN Administration Intake and Output 12/30/20 12/31/20 12/31/20 22:59 06:59 14:59 Other: Voiding Method Toilet Toilet # Voids 3 3 Weight 149.685 kg 12/30/20 11:22 12/30/20 11:22
[2020-12-31 15:30] VITALS: BP 170/78; PULSE 70; RESP 17; TEMP 98.5
--- NOTE | 2020-12-31 21:08 | P.DS ---
Providers Date of admission: 12/30/20 15:01 Expected date of discharge: 12/31/20 Attending physician: Jax Weir Consults: 12/30/20 15:07 Consult Physician Urgent Consulting Provider: Kwaku Randhawa Consult Reason/Comments: chest pain Do you want consulting provider notified?: Yes Primary care physician: [facility] Course: Chief Complaint: Chest pain History of presenting complaint: This is a pleasant 50-year-old patient, follows with Dr. Nj. Chronic stable medical conditions include diabetes, GERD, hypertension, hyperlipidemia, hypothyroid, obstructive sleep apnea uses CPAP. Patient's had a prior cardiac catheterization that was normal. Patient is a smoker. Patient this morning noticed left precordial pressure. Present off and on since morning. Had some associated dizziness or lightheadedness. Slight headache. No radiation. Patient felt he was dehydrated work 2 days ago. Also some diarrhea 2 days ago in the evening and yesterday morning. Has felt dehydrated tired. Patient had a stress test earlier this year. Reportedly negative by Dr. Johnson. His appetite has been down since yesterday. Finding slightly hungry now. Patient also has a ulcer on the plantar aspect of the right small finger. For about a week 10 days. No fever no chills. It hurts to step on it. No drainage. Patient also feels that his urine has been strong colored. December 31: Troponin negative. Seen by cardiology. Cleared for discharge. 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 Patient to complete course of Keflex. Manager Msw: Dr. Srinath Beckham from cardiology Past medical history to include: Diabetes, GERD, hypertension, hyperlipidemia, hypothyroid, obstructive sleep apnea uses CPAP Social history: Smoking a pack a day for close to 33 years. 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 Added. No alcohol. Denies drugs. Family history: CAD Physical examination: VITAL SIGNS: 98.5, 70, 17, 137/73, 96% room air GENERAL: BMI 50.2, declining bed, awake, tired. EYES: Pupils equal. Conjunctiva normal. NECK: JVD not raised; masses not palpable. HEART: First and second heart sounds are normal; no edema. LUNGS: Respiratory rate normal; clear to auscultation. ABDOMEN: Soft, nontender, liver spleen not palpable, no masses palpable. PSYCH: Alert and oriented x3; mood and affect normal. EXTREMITY: Ulcer on the plantar aspect of the right little finger. Tender. Dry. No drainage. INVESTIGATIONS, reviewed in the clinical context: WBC 6.3 hemoglobin 15.5 platelets 207 potassium 3.7 BUN 11 creatinine 0.75 Troponin I 3 negative UA positive for protein 1+ ketones 1+ Coronavirus [PCR]: Not detected EKG tracing personally reviewed by me-normal sinus rhythm, incomplete right bundle branch block Chest CTA: No obvious PE. Chest x-ray film personally reviewed by me-no obvious infiltrates Assessment and plan: -Left precordial pain. Noncardiac sounding. But patient has risk factors. Including diabetes, hypertension, hyperlipidemia, smoking. And a positive family history. Patient did have a cardiac catheterization a few years ago that was negative. Stress test earlier in the year was reportedly negative.: Possibly muscular skeletal Aspirin. Telemetry. Follow-up with cardiology outpatient -Clinical dehydration from patient having diarrhea and decreased oral intake for last 2 days. IV fluids -Hypothyroid Synthroid 25 g a day -Essential hypertension Valsartan 320 mg daily, amlodipine 7.5 daily -Hyperlipidemia 40 mg daily at bedtime -Restless leg syndrome On Requip -Morbid obesity BMI 50.2 Weight loss measures. Follow-up with PCP -Nicotine dependence, sitting smoking Nicotine patch -Right small toe, ulcer secondary to diabetes and the plantar aspect. Patient has no fever, no white count and no drainage. Keflex 500 mg by mouth 4 times a day for 7 days -Depression not otherwise specified Effexor XL 150 mg daily at bedtime Disposition: Home Patient Condition at Discharge: Fair Plan - Discharge Summary New Discharge Prescriptions: No Action rOPINIRole HCL [Requip] 0.5 - 1 mg PO HS PRN PRN Reason: RESTLESS LEGS Venlafaxine HCl ER [Effexor XR] 150 mg PO HS Levothyroxine Sodium [Synthroid] 25 mcg PO DAILY hydroCHLOROthiazide [Hydrodiuril] 25 mg PO DAILY metFORMIN HCL [Glucophage] 500 mg PO BID amLODIPine [Norvasc] 7.5 mg PO DAILY Atorvastatin Calcium [Lipitor] 40 mg PO HS Valsartan 320 mg PO DAILY Discharge Medication List Venlafaxine HCl ER [Effexor XR] 150 mg PO HS 09/17/18 [History] rOPINIRole HCL [Requip] 0.5 - 1 mg PO HS PRN 09/17/18 [History] Levothyroxine Sodium [Synthroid] 25 mcg PO DAILY 04/29/20 [History] hydroCHLOROthiazide [Hydrodiuril] 25 mg PO DAILY 04/29/20 [History] metFORMIN HCL [Glucophage] 500 mg PO BID 11/09/20 [History] Atorvastatin Calcium [Lipitor] 40 mg PO HS 12/30/20 [History] Valsartan 320 mg PO DAILY 12/30/20 [History] amLODIPine [Norvasc] 7.5 mg PO DAILY 12/30/20 [History] Follow up Appointment(s)/Referral(s): Kevin Beckham MD [STAFF PHYSICIAN] - 2 Weeks Magnus Nj DO [Primary Care Provider] - 1-2 days Patient Instructions/Handouts: Chest Pain (DC) Discharge Disposition: HOME SELF-CARE
== END 2020-12-31 16:15 | disposition home or self-care (01) ==
LOC: EC 10:09 → 6NMEDSUR 15:01
PROVIDERS: ADMIT Hospitalist; ATTEND Hospitalist
DX: R07.2 Precordial pain (principal); E86.0 Dehydration; R19.7 Diarrhea, unspecified; R63.8 Other symptoms and signs concerning food and fluid intake; E11.621 Type 2 diabetes mellitus with foot ulcer; L97.519 Non-pressure chronic ulcer of other part of right foot with unspecified severity; G25.81 Restless legs syndrome; G47.33 Obstructive sleep apnea (adult) (pediatric); R59.0 Localized enlarged lymph nodes; I45.10 Unspecified right bundle-branch block; E03.9 Hypothyroidism, unspecified; E78.5 Hyperlipidemia, unspecified; I10 Essential (primary) hypertension; K21.9 Gastro-esophageal reflux disease without esophagitis; F17.210 Nicotine dependence, cigarettes, uncomplicated; F32.9 Major depressive disorder, single episode, unspecified; Z79.890 Hormone replacement therapy; E66.01 Morbid (severe) obesity due to excess calories; Z68.43 Body mass index [BMI] 50.0-59.9, adult; Z79.84 Long term (current) use of oral hypoglycemic drugs; Z79.899 Other long term (current) drug therapy; Z98.52 Vasectomy status; Z87.81 Personal history of (healed) traumatic fracture; Z98.890 Other specified postprocedural states; Z82.49 Family history of ischemic heart disease and other diseases of the circulatory system
CPT/HCPCS: 96360; 96361; 99285; 36415; 93005; 93306; 85379; 80061; 80053; 83690; 83735; 84484; 85025; 85610; 85730; 81001; 87635; 71046; 71275; G0378 ×2; Q9950; Q9967

== ENCOUNTER 2021-02-07 08:58 | Inpatient (IN) | payer BC ==
--- NOTE | 2021-02-07 11:42 | ED ---
Psych HPI - General Chief Complaint: Psychiatric Symptoms Stated Complaint: Mental Health Time Seen by Provider: 02/07/21 09:35 Source: patient, family, RN notes reviewed Mode of arrival: ambulatory - History of Present Illness Initial Comments: 49-year-old male with a history depression who states for the past week he's felt really depressed for multiple reasons including life situations. He states he is thought about killing himself with his medications he states he is looked up online to see what would take to kill him. He denies any drugs or alcohol however. No fevers chills nausea vomiting sweats no other symptoms. He is here with a family member at this time. MD Complaint: suicidal ideation, feels depressed - Related Data Home Medications Medication Instructions Recorded Confirmed Venlafaxine HCl ER [Effexor XR] 150 mg PO HS 09/17/18 02/07/21 rOPINIRole HCL [Requip] 1 mg PO HS 09/17/18 02/07/21 Levothyroxine Sodium [Synthroid] 25 mcg PO HS 04/29/20 02/07/21 hydroCHLOROthiazide [Hydrodiuril] 25 mg PO DAILY 04/29/20 02/07/21 metFORMIN HCL [Glucophage] 500 mg PO BID 11/09/20 02/07/21 Atorvastatin Calcium [Lipitor] 40 mg PO HS 12/30/20 02/07/21 Valsartan 320 mg PO HS 12/30/20 02/07/21 amLODIPine [Norvasc] 7.5 mg PO DAILY 12/30/20 02/07/21 Multivitamins, Thera [Multivitamin 1 tab PO AC-SUPPER 02/07/21 02/07/21 (formulary)] Allergies Allergy/AdvReac Type Severity Reaction Status Date / Time No Known Allergies Allergy Verified 02/07/21 11:30 Review of Systems ROS Statement: Those systems with pertinent positive or pertinent negative responses have been documented in the HPI. ROS Other: All systems not noted in ROS Statement are negative. Past Medical History Past Medical History: Chest Pain / Angina, Diabetes Mellitus, GERD/Reflux, Hyperlipidemia, Hypertension, Sleep Apnea/CPAP/BIPAP, Thyroid Disorder Additional Past Medical History / Comment(s): 06/14/15 Pt presented to [facility] ER with dizziness, lightheaded since yesterday, has cpap. History of Any Multi-Drug Resistant Organisms: None Reported Past Surgical History: Heart Catheterization, Orthopedic Surgery Additional Past Surgical History / Comment(s): Catheterization yrs ago-normal, vasectomy, Right arm tendon reattached as child, right ankle fracture-surgery r equired twice., orthoscopic right knee Past Anesthesia/Blood Transfusion Reactions: No Reported Reaction Past Psychological History: Depression Smoking Status: Current every day smoker Past Alcohol Use History: None Reported Past Drug Use History: None Reported - Past Family History Father History Unknown: Yes Additional Family Medical History / Comment(s): Patient's father is alive at 65 years of age. Mother Family Medical History: Coronary Artery Disease (CAD), Myocardial Infarction ([place]) Additional Family Medical History / Comment(s): Mother of a [place] at age 61 yrs. General Exam - General Exam Comments Initial Comments: This is a well-developed well-nourished awake alert oriented 3 male Limitations: no limitations General appearance: alert, in no apparent distress Head exam: Present: atraumatic, normocephalic, normal inspection Eye exam: Present: normal appearance, PERRL, EOMI. Absent: scleral icterus, conjunctival injection, periorbital swelling ENT exam: Present: normal exam, mucous membranes moist Neck exam: Present: normal inspection. Absent: tenderness, meningismus, lymphadenopathy Respiratory exam: Present: normal lung sounds bilaterally. Absent: respiratory distress, wheezes, rales, rhonchi, stridor Cardiovascular Exam: Present: regular rate, normal rhythm, normal heart sounds. Absent: systolic murmur, diastolic murmur, rubs, gallop, clicks GI/Abdominal exam: Present: soft, normal bowel sounds. Absent: distended, tenderness, guarding, rebound, rigid Extremities exam: Present: normal inspection, full ROM, normal capillary refill. Absent: tenderness, pedal edema, joint swelling, calf tenderness Back exam: Present: normal inspection Neurological exam: Present: alert, oriented X3, CN II-XII intact Psychiatric exam: Present: depressed, flat affect, suicidal ideation Skin exam: Present: warm, dry, intact, normal color. Absent: rash Course Vital Signs 02/07/21 09:11 Temperature 98.4 F Pulse Rate 81 Respiratory 20 Rate Blood Pressure 183/103 O2 Sat by Pulse 96 Oximetry Medical Decision Making - Medical Decision Making The patient was evaluated by the psychiatric service and will be admitted for inpatient evaluation treatment of depression and suicidal ideation. Patient is a voluntary admission. - Lab Data Lab Results 02/07/21 Range/Units 11:14 Urine Opiates Screen Not Detected (NotDetected) Ur Oxycodone Screen Not Detected (NotDetected) Urine Methadone Screen Not Detected (NotDetected) Ur Propoxyphene Screen Not Detected (NotDetected) Ur Barbiturates Screen Not Detected (NotDetected) U Tricyclic Antidepress Not Detected (NotDetected) Ur Phencyclidine Scrn Not Detected (NotDetected) Ur Amphetamines Screen Not Detected (NotDetected) U Methamphetamines Scrn Not Detected (NotDetected) U Benzodiazepines Scrn Not Detected (NotDetected) Urine Cocaine Screen Not Detected (NotDetected) U Marijuana (THC) Screen Not Detected (NotDetected) Disposition Clinical Impression: Suicidal ideation, Depression Disposition: TRANSFER TO PSYCH HOSP/UNIT Condition: Stable Referrals: Magnus Nj DO [Primary Care Provider] - 1-2 days
[2021-02-07 11:49] LABS: Amphetamine Screen,Urine Not Detected (NotDetected); Barbiturate Screen,Urine Not Detected (NotDetected); Benzodiazepines Screen,Urine Not Detected (NotDetected); Cocaine Screen,Urine Not Detected (NotDetected); Methadone Screen, Urine Not Detected (NotDetected); Opiate Screen,Urine Not Detected (NotDetected); Oxycodone Screen, Urine Not Detected (NotDetected); Phencyclidine Screen,Urine Not Detected (NotDetected); Tricyclic Antidepressant,Urine Not Detected (NotDetected); Urn Cannabinoid Scrn Not Detected (NotDetected)
[2021-02-07] MEDS ORDERED: LORazepam 1 MG TAB PO PRN (15:32)
[2021-02-07] MEDS ORDERED: MAG HYDROX/AL HYDROX/SIMETH 30 ML CUP PO PRN (15:32)
[2021-02-07] MEDS ORDERED: MAGNESIUM HYDROXIDE 2,400 MG/10 ML CUP PO PRN (15:32)
[2021-02-07] MEDS ORDERED: ACETAMINOPHEN TAB 325 MG TAB PO PRN (15:32)
[2021-02-07] MEDS ORDERED: LORazepam 2 MG/ML INJ IM PRN (15:35)
[2021-02-07] MEDS ORDERED: haloperidoL 5 MG TAB PO PRN (15:35)
[2021-02-07] MEDS ORDERED: HALOPERIDOL LACTATE 5 MG/ML 1 ML VIAL IM PRN (15:35)
[2021-02-07] MEDS: NICOTINE 14MG/24HR PATCH TRANSDERM SCH (17:05)
[2021-02-07] MEDS: MULTIVITAMINS, THERA 1 EACH TAB PO SCH (17:06)
[2021-02-07 18:00] LABS: Glucose,Whole Blood 81 mg/dL (75-99)
[2021-02-07] MEDS: metFORMIN 500 MG TAB PO SCH (18:00)
[2021-02-07] MEDS ORDERED: VENLAFAXINE HCL ER 150 MG CAP PO SCH (21:00)
[2021-02-07] MEDS: VALSARTAN 160 MG TAB PO SCH (21:53)
[2021-02-07] MEDS: ATORVASTATIN 40 MG TAB PO SCH (21:53)
[2021-02-07] MEDS: LEVOTHYROXINE 25 MCG TAB PO SCH (21:53)
[2021-02-08 07:18] VITALS: RESP 16
[2021-02-08 07:25] LABS: Basophils % (A) 0 %; Eosinophils # (A) 0.2 k/uL (0-0.7); Eosinophils % (A) 3 %; HCT 51.1 % (39.0-53.0); HGB 16.4 gm/dL (13.0-17.5); Lymphocytes # (A) 1.4 k/uL (1.0-4.8); Lymphocytes % (A) 19 %; MCH 31.5 pg (25.0-35.0); MCV 98.4 fL (80.0-100.0); Mean Platelet Volume 7.3; Monocytes # (A) 0.4 k/uL (0-1.0); Monocytes % (A) 6 %; Neutrophils # (A) 5.3 k/uL (1.3-7.7); Neutrophils % (A) 70 %; Platelet Count 214 k/uL (150-450); WBC 7.5 k/uL (3.8-10.6)
[2021-02-08 07:41] LABS: Glucose,Whole Blood 128 mg/dL (75-99)
[2021-02-08 07:53] LABS: ALT 53 U/L (4-49); AST 31 U/L (17-59); African American GFR (CKD) >90 (>60 ml/min/1.73 sqM); Albumin 4.3 g/dL (3.5-5.0); Alkaline Phosphatase 142 U/L (38-126); Anion Gap 9 mmol/L; Blood Urea Nitrogen 15 mg/dL (9-20); Calcium 9.7 mg/dL (8.4-10.2); Carbon Dioxide 29 mmol/L (22-30); Chloride 100 mmol/L (98-107); Glucose 126 mg/dL (74-99); Non-African American GFR(CKD) 88 (>60 ml/min/1.73 sqM); Potassium 5.3 mmol/L (3.5-5.1); Sodium 138 mmol/L (137-145); Total Bilirubin 0.7 mg/dL (0.2-1.3); Total Protein 7.5 g/dL (6.3-8.2)
[2021-02-08] MEDS: amLODIPine 2.5 MG TAB PO SCH (08:37)
[2021-02-08] MEDS: hydroCHLOROthiazide 25 MG TAB PO SCH (08:37)
[2021-02-08] MEDS: metFORMIN 500 MG TAB PO SCH ×2 (08:37→17:54)
[2021-02-08] MEDS: NICOTINE 14MG/24HR PATCH TRANSDERM SCH (08:39)
--- NOTE | 2021-02-08 11:44 | P.HP ---
Psychiatric H&P - . H&P Date: 02/08/21 History & Physical: Allergies Allergy/AdvReac Type Severity Reaction Status Date / Time No Known Allergies Allergy Verified 02/07/21 11:30 Vital Signs Temp 96.6 F L 02/08/21 08:40 Pulse 93 02/08/21 08:40 Resp 16 02/08/21 08:40 BP 114/81 02/08/21 08:40 Pulse Ox 96 02/08/21 08:40 Intake & Output 02/07/21 02/08/21 02/08/21 18:59 06:59 18:59 Weight 142.485 kg Laboratory Last Values WBC 7.5 k/uL (3.8-10.6) 02/08/21 06:33 RBC 5.20 m/uL (4.30-5.90) 02/08/21 06:33 Hgb 16.4 gm/dL (13.0-17.5) 02/08/21 06:33 Hct 51.1 % (39.0-53.0) 02/08/21 06:33 MCV 98.4 fL (80.0-100.0) 02/08/21 06:33 MCH 31.5 pg (25.0-35.0) 02/08/21 06:33 MCHC 32.0 g/dL (31.0-37.0) 02/08/21 06:33 RDW 13.0 % (11.5-15.5) 02/08/21 06:33 Plt Count 214 k/uL (150-450) 02/08/21 06:33 MPV 7.3 02/08/21 06:33 Neutrophils % 70 % 02/08/21 06:33 Lymphocytes % 19 % 02/08/21 06:33 Monocytes % 6 % 02/08/21 06:33 Eosinophils % 3 % 02/08/21 06:33 Basophils % 0 % 02/08/21 06:33 Neutrophils # 5.3 k/uL (1.3-7.7) 02/08/21 06:33 Lymphocytes # 1.4 k/uL (1.0-4.8) 02/08/21 06:33 Monocytes # 0.4 k/uL (0-1.0) 02/08/21 06:33 Eosinophils # 0.2 k/uL (0-0.7) 02/08/21 06:33 Basophils # 0.0 k/uL (0-0.2) 02/08/21 06:33 Sodium 138 mmol/L (137-145) 02/08/21 06:33 Potassium 5.3 mmol/L (3.5-5.1) H 02/08/21 06:33 Chloride 100 mmol/L (98-107) 02/08/21 06:33 Carbon Dioxide 29 mmol/L (22-30) 02/08/21 06:33 Anion Gap 9 mmol/L 02/08/21 06:33 BUN 15 mg/dL (9-20) 02/08/21 06:33 Creatinine 1.00 mg/dL (0.66-1.25) 02/08/21 06:33 Est GFR (CKD-EPI)AfAm >90 (>60 ml/min/1.73 sqM) 02/08/21 06:33 Est GFR (CKD-EPI)NonAf 88 (>60 ml/min/1.73 sqM) 02/08/21 06:33 Glucose 126 mg/dL (74-99) H 02/08/21 06:33 POC Glucose (mg/dL) 128 mg/dL (75-99) H 02/08/21 07:39 POC Glu Employee Relations Director ID Mumtaz Hill 02/08/21 07:[address] Glu mg/dL 131 02/08/21 06:33 Hemoglobin A1c 6.2 % (4.0-6.0) H 02/08/21 06:33 Calcium 9.7 mg/dL (8.4-10.2) 02/08/21 06:33 Total Bilirubin 0.7 mg/dL (0.2-1.3) 02/08/21 06:33 AST 31 U/L (17-59) 02/08/21 06:33 ALT 53 U/L (4-49) H 02/08/21 06:33 Alkaline Phosphatase 142 U/L (38-126) H 02/08/21 06:33 Total Protein 7.5 g/dL (6.3-8.2) 02/08/21 06:33 Albumin 4.3 g/dL (3.5-5.0) 02/08/21 06:33 TSH 2.280 mIU/L (0.465-4.680) 02/08/21 06:33 Urine Opiates Screen Not Detected (NotDetected) 02/07/21 11:14 Ur Oxycodone Screen Not Detected (NotDetected) 02/07/21 11:14 Urine Methadone Screen Not Detected (NotDetected) 02/07/21 11:14 Ur Propoxyphene Screen Not Detected (NotDetected) 02/07/21 11:14 Ur Barbiturates Screen Not Detected (NotDetected) 02/07/21 11:14 U Tricyclic Antidepress Not Detected (NotDetected) 02/07/21 11:14 Ur Phencyclidine Scrn Not Detected (NotDetected) 02/07/21 11:14 Ur Amphetamines Screen Not Detected (NotDetected) 02/07/21 11:14 U Methamphetamines Scrn Not Detected (NotDetected) 02/07/21 11:14 U Benzodiazepines Scrn Not Detected (NotDetected) 02/07/21 11:14 Urine Cocaine Screen Not Detected (NotDetected) 02/07/21 11:14 U Marijuana (THC) Screen Not Detected (NotDetected) 02/07/21 11:14 Coronavirus (PCR) Not Detected (Not Detectd) 02/07/21 13:45 02/08/21 11:44 IDENTIFYING DATA: Patient is a , employed, 50-year-old male with a significant history of depression who presented to the emergency Department with depression and suicidal ideation. HPI: Patient presented to the hospital on 02/07/2021, with the chief complaint of depression with suicidal ideation. As per APS report, the patient reported that he was battling depression for several years but has been worsening over the past week or so. He has been researching how much of his medications would it take to end his life. He has also been intermittently compliant with his prescribed medications. Upon evaluation on the psychiatric unit, the patient reports that he has been expressing depression over the past one month. He reports numerous stressors that have been contributing to his depression including health issues (knee surgery in November 2020 which has not alleviated any pain), home repair issues, and car issues. He states that with all these stressors, he has been unable to catch a break. He reports significant symptoms of depression including increased feelings of isolation, increased sleep, decreased energy, spending most of his time in bed, feeling hopeless, expressing an irregular appetite, and expressing anhedonia. He reports that he's been experiencing suicidal ideation for the past week. He does report that he has been researching how to overdose on his medications. He states he stopped doing this because he thought of his kids. He does report one prior attempt at suicide 30 years ago by overdosing on Tegretol. The patient is not endorsing any other significant symptoms related to any other mood disorder. He is not endorsing any significant symptoms of aziza. He denies any history of increased goal-directed activity, excessive energy, grandiosity, or impulsivity. The patient does state that he has been intermittently adherent with his prescribed medications but states that he has only missed his Effexor dose once before. He states that he expresses significant headache when he forgot to take the medication and therefore he never forgets to take it. He states that he has been on this medication since his last inpatient admission 4 to 5 years ago. He reports that it has not been adjusted since then. The patient denies any current or past history of psychosis. He is currently denying any auditory or visual hallucinations. He is denying any paranoia or delusions. In regards to substance use, the patient admits to smoking one and half packs per day. He denies any marijuana, illicit drug use, or any significant alcohol use. He is not endorsing any significant history of trauma. He reports no history of physical, emotional, or sexual abuse. PAST PSYCHIATRIC HISTORY: Patient states that he has been diagnosed with depression in the past. The patient is only able to recall ever being prescribed venlafaxine for depression. He reports one prior inpatient psychiatric hospitalization 4-5 years ago here on this unit for depression with SI. The patient was previously open with [facility] for outpatient psychiatric treatment but is now currently not seeing any therapist or psychiatric provider. His primary care physician prescribes his psychotropic medications. Patient reports one prior attempt at suicide by overdosing on Tegretol. PMH: Past Medical History: Chest Pain / Angina, Diabetes Mellitus, GERD/Reflux, Hyperlipidemia, Hypertension, Sleep Apnea/CPAP/BIPAP, Thyroid Disorder Additional Past Medical History / Comment(s): 06/14/15 Pt presented to [facility] ER with dizziness, lightheaded since yesterday, has cpap. History of Any Multi-Drug Resistant Organisms: None Reported Past Surgical History: Heart Catheterization, Orthopedic Surgery Additional Past Surgical History / Comment(s): Catheterization yrs ago-normal, vasectomy, Right arm tendon reattached as child, right ankle fracture-surgery required twice., orthoscopic right knee Past Anesthesia/Blood Transfusion Reactions: No Reported Reaction Past Psychological History: Depression Smoking Status: Current every day smoker Past Alcohol Use History: None Reported Past Drug Use History: None Reported ALLERGIES: NO KNOWN DRUG ALLERGIES CHEMICAL DEPENDENCY HISTORY: The patient reports he smokes one and half packs per day of tobacco. He denies any marijuana, alcohol, or illicit drug use. FAMILY PSYCHIATRIC/SUBSTANCE USE HISTORY: The patient reports a significant family history of depression. He states that his father's side of the family has members who committed suicide and numerous family members on that side been diagnosed with depression. SOCIAL HISTORY: Patient was born and raised in [place]. He has been to his Concepcion for 26 years and they have 4 children together ages 24, 21, 10, and 6. 3 of his children live with him and his . His parents but he reports that his stepfather was very accepting and kind to him. 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 He reports no service. He denies any significant taoism affiliation. Reports working as a hobby. MENTAL STATUS EXAM: General Appearance: Patient appears to be stated age is alert, directable, and attempts to cooperate. Patient appears to have poor hygiene and grooming. The patient has obese body habitus and appears disheveled with unkempt hair and reed. Behavior: Patient is seated without any agitated behavior. Eye contact is appropriate. Psychomotor activity appears normal. Speech: Patient's speech is fluent and nonpressured. Spontaneous, with normal rate, tone, and volume. Mood/Affect: Patient reports their mood is depressed, affect is congruent and constricted. Suicidality/Homicidality: Patient denies any current suicidal or homicidal ideation, intention, and/or plan. Perceptions: Patient denies any visual hallucinations and denies any auditory hallucinations Though content/process: There is no evidence of any delusional thought content and thought process is linear and goal-directed. Memory and concentration: AOX3, grossly intact for the purposes of this session. Can spell "WORLD" backwards Judgment and insight: Fair STRENGTHS/WEAKNESSES: Strength is that the patient has a supportive family, stable housing, stable inc ome, and good insight and judgment. Weakness is that the patient has significant medical issues and numerous psychosocial stressors. INTELLECT: average IMPRESSIONS: Major depressive disorder, recurrent, severe Nicotine dependence PLAN: -Patient is admitted under voluntary status to MHU for stabilization of psychiatric symptoms and safety. Patient signed adult voluntary form and medication consent and is placed in patient's chart. -Medications : We'll increase the patient's Effexor to 225 mg daily at bedtime for depression/anxiety Lidocaine cream for pain. -Ativan and Haldol PRN for agitation/aggression -Patient was counselled on substance abuse and desired to cut back on use -Patient was informed of the risks, benefits and side effects of the medication and patient verbally consented to taking the medications. Patient signed med consent form and was placed in chart. -Internal Medicine consult to perform medical evaluation and physical. -NRT - nicotine patch -SW on board for discharge planning. Encourage patient to participate in groups to work on coping skills. 02/08/21 11:44
[2021-02-08 17:53] LABS: Glucose,Whole Blood 88 mg/dL (75-99)
[2021-02-08] MEDS: MULTIVITAMINS, THERA 1 EACH TAB PO SCH (17:54)
--- NOTE | 2021-02-08 19:54 | P.CONS ---
History of Present Illness - Reason for Consult Consult date: 02/08/21 Medical management Requesting physician: Leandro Rice - Chief Complaint Depressed - History of Present Illness istory of presenting complaint: This is a pleasant 50-year-old patient, follows with Dr. Nj. Chronic stable medical conditions include diabetes, GERD, hypertension, hyperlipidemia, hypothyroid, obstructive sleep apnea uses CPAP. prior cardiac catheterization that was normal. Patient is a smoker. Patient now presents to the ER with progressive symptoms of anxiety depression suicidal ideation. She seems to be progressively getting worse. Over a period of time. He has several social issues including issues at home financial issues. Even thought of taking medication overdose. Finally decided to come in. No fever no chills. No cough. Appetite is fair. No sleeping too well. 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 No alcohol. Denies drugs. Family history: CAD Physical examination: VITAL SIGNS: 97.6, 78, 16, 120/72, and 96% room air GENERAL: BMI 47.8, awake, comfortable EYES: Pupils equal. Conjunctiva normal. HEENT: External appearance of nose and ears normal, oral cavity grossly normal. NECK: JVD not raised; masses not palpable. HEART: First and second heart sounds are normal; no edema. LUNGS: Respiratory rate normal; clear to auscultation. ABDOMEN: Soft, nontender, liver spleen not palpable, no masses palpable. PSYCH: Alert and oriented x3; mood and affect normal. NEUROLOGICAL: Cranial nerves grossly intact; no facial asymmetry, power and se nsation grossly intact. LYMPHATICS: No lymph nodes palpable in the axilla and neck INVESTIGATIONS, reviewed in the clinical context: WBC 7.5. Weight 16.4 platelets 214 potassium 5.3 creatinine 1.0 TSH 2.2 Coronavirus [PCR]: Not detected Assessment and plan: -Hypothyroid Synthroid 25 g a day -Essential hypertension Valsartan 320 mg daily, amlodipine 7.5 daily -Diabetes mellitus type 2 on oral hypoglycemic Metformin 5 mg twice a day. Follow Accu-Cheks -Hyperlipidemia 40 mg Lipitor at bedtime -Restless leg syndrome Requip 1 mg daily at bedtime -Morbid obesity BMI 27.8 Weight loss measures. Follow-up with PCP -Nicotine dependence, cigarette smoking Nicotine patch -Major depression, severe, recurrent Effexor XL to 25 mg daily at bedtime, Haldol when necessary Care was discussed with the patient. Home medications resumed. Follow [facility]u- Cheks. Patient to follow-up with his PCP upon discharge Thank you Dr. Rice Past Medical History Past Medical History: Chest Pain / Angina, Diabetes Mellitus, GERD/Reflux, Hyperlipidemia, Hypertension, Sleep Apnea/CPAP/BIPAP, Thyroid Disorder Additional Past Medical History / Comment(s): 06/14/15 Pt presented to [facility] ER with dizziness, lightheaded since yesterday, has cpap. History of Any Multi-Drug Resistant Organisms: None Reported Past Surgical History: Heart Catheterization, Orthopedic Surgery Additional Past Surgical History / Comment(s): Catheterization yrs ago-normal, vasectomy, Right arm tendon reattached as child, right ankle fracture-surgery required twice., orthoscopic right knee Past Anesthesia/Blood Transfusion Reactions: No Reported Reaction Past Psychological History: Depression Additional Psychological History / Comment(s): Pt resides with his spouse and 3 of their children ages 24, 10, and 6. He uses no assistive device. He drives. Smoking Status: Current every day smoker Past Alcohol Use History: None Reported Additional Past Alcohol Use History / Comment(s): Pt. denies alcohol and drug use currently or a past history. Past Drug Use History: None Reported - Past Family History Father History Unknown: Yes Additional Family Medical History / Comment(s): Patient's father is alive at 65 years of age. Mother Family Medical History: Coronary Artery Disease (CAD), Myocardial Infarction (VA) Additional Family Medical History / Comment(s): Mother of a VA at age 61 yrs. Medications and Allergies Home Medications Medication Instructions Recorded Confirmed Type Venlafaxine HCl ER [Effexor XR] 150 mg PO HS 09/17/18 02/07/21 History rOPINIRole HCL [Requip] 1 mg PO HS 09/17/18 02/07/21 History Levothyroxine Sodium [Synthroid] 25 mcg PO HS 04/29/20 02/07/21 History hydroCHLOROthiazide [Hydrodiuril] 25 mg PO DAILY 04/29/20 02/07/21 History metFORMIN HCL [Glucophage] 500 mg PO BID 11/09/20 02/07/21 History Atorvastatin Calcium [Lipitor] 40 mg PO HS 12/30/20 02/07/21 History Valsartan 320 mg PO HS 12/30/20 02/07/21 History amLODIPine [Norvasc] 7.5 mg PO DAILY 12/30/20 02/07/21 History Multivitamins, Thera [Multivitamin 1 tab PO AC-SUPPER 02/07/21 02/07/21 History (formulary)] Allergies Allergy/AdvReac Type Severity Reaction Status Date / Time No Known Allergies Allergy Verified 02/07/21 11:30 Physical Exam Vitals: Vital Signs Temp Pulse Pulse Resp BP BP Pulse Ox 02/08/21 08:40 96.6 F L 93 16 114/81 96 02/08/21 07:05 97.6 F 78 16 124/72 02/07/21 15:50 98.6 F 73 22 155/103 96 02/07/21 15:35 98.4 F 82 18 150/95 96 02/07/21 15:00 82 18 150/95 96 02/07/21 14:00 18 02/07/21 13:00 18 02/07/21 12:00 18 02/07/21 11:00 18 Intake and Output 02/07/21 02/08/21 02/08/21 22:59 06:59 14:59 Other: Weight 142.485 kg Results CBC & Chem 7: 02/08/21 06:33 02/08/21 06:33 Labs: Abnormal Lab Results - Last 24 Hours (Table) 02/08/21 02/08/21 Range/Units 06:33 07:39 Potassium 5.3 H (3.5-5.1) mmol/L Glucose 126 H (74-99) mg/dL POC Glucose (mg/dL) 128 H (75-99) mg/dL ALT 53 H (4-49) U/L Alkaline Phosphatase 142 H (38-126) U/L
[2021-02-08 20:13] LABS: Glucose,Whole Blood 150 mg/dL (75-99)
[2021-02-08] MEDS ORDERED: VENLAFAXINE HCL ER 75 MG CAP PO SCH (21:00)
[2021-02-08] MEDS ORDERED: LIDOCAINE 4% CREAM 5 GM TUBE TOPICAL SCH (21:00)
[2021-02-08] MEDS: LEVOTHYROXINE 25 MCG TAB PO SCH (21:05)
[2021-02-08] MEDS: ATORVASTATIN 40 MG TAB PO SCH (21:05)
[2021-02-08] MEDS: VALSARTAN 160 MG TAB PO SCH (21:06)
[2021-02-09 05:10] VITALS: BP 124/65; PULSE 98; TEMP 97.1
[2021-02-09 05:39] LABS: Chol/HDL Ratio 6.78 Ratio; LDL Cholesterol,Calculated 163.2 mg/dL (0.0-131.0)
[2021-02-09 08:02] LABS: Glucose,Whole Blood 114 mg/dL (75-99)
[2021-02-09] MEDS: amLODIPine 2.5 MG TAB PO SCH (08:02)
[2021-02-09] MEDS: metFORMIN 500 MG TAB PO SCH (08:03)
[2021-02-09] MEDS: hydroCHLOROthiazide 25 MG TAB PO SCH (08:03)
[2021-02-09] MEDS: NICOTINE 14MG/24HR PATCH TRANSDERM SCH (08:03)
--- NOTE | 2021-02-09 12:19 | P.DS ---
Providers Date of admission: 02/07/21 15:10 Expected date of discharge: 02/09/21 Attending physician: Leandro Rice MD Consults: 02/07/21 15:32 Consult Physician Routine Consulting Provider: Jax Weir Consult Reason/Comments: H&P and medical Do you want consulting provider notified?: Yes Primary care physician: Magnus Nj - Discharge Diagnosis(es) (1) Major depressive disorder, recurrent severe without psychotic features Current Visit: Yes Status: Acute Priority: High (2) Nicotine dependence Current Visit: Yes Status: Chronic Priority: Medium Hospital Course: Admission HPI: Patient is a , employed, 50-year-old male with a significant history of depression who presented to the emergency Department with depression and suicidal ideation. Patient presented to the hospital on 02/07/2021, with the chief complaint of depression with suicidal ideation. As per APS report, the patient reported that he was battling depression for several years but has been worsening over the past week or so. He has been researching how much of his medications would it take to end his life. He has also been intermittently compliant with his prescribed medications. Upon evaluation on the psychiatric unit, the patient reports that he has been expressing depression over the past one month. He reports numerous stressors that have been contributing to his depression including health issues (knee surgery in November 2020 which has not alleviated any pain), home repair issues, and car issues. He states that with all these stressors, he has been unable to catch a break. He reports significant symptoms of depression including increased feelings of isolation, increased sleep, decreased energy, spending most of his time in bed, feeling hopeless, expressing an irregular appetite, and expressing anhedonia. He reports that he's been experiencing suicidal ideation for the past week. He does report that he has been researching how to overdose on his medications. He states he stopped doing this because he thought of his kids. He does report one prior attempt at suicide 30 years ago by overdosing on Tegretol. The patient is not endorsing any other significant symptoms related to any other mood disorder. He is not endorsing any significant symptoms of aziza. He denies any history of increased goal-directed activity, excessive energy, grandiosity, or impulsivity. The patient does state that he has been intermittently adherent with his prescribed medications but states that he has only missed his Effexor dose once before. He states that he expresses significant headache when he forgot to take the medication and therefore he never forgets to take it. He states that he has been on this medication since his last inpatient admission 4 to 5 years ago. He reports that it has not been adjusted since then. The patient denies any current or past history of psychosis. He is currently denying any auditory or visual hallucinations. He is denying any paranoia or delusions. In regards to substance use, the patient admits to smoking one and half packs per day. He denies any marijuana, illicit drug use, or any significant alcohol use. He is not endorsing any significant history of trauma. He reports no history of physical, emotional, or sexual abuse. Patient states that he has been diagnosed with depression in the past. The patient is only able to recall ever being prescribed venlafaxine for depression. He reports one prior inpatient psychiatric hospitalization 4-5 years ago here on this unit for depression with SI. The patient was previously open with [facility] for outpatient psychiatric treatment but is now currently not seeing any therapist or psychiatric provider. His primary care physician prescribes his psychotropic medications. Patient reports one prior attempt at suicide by overdosing on Tegretol. Hospital course: Upon admission to the unit patient was initially presenting with significant symptoms of depression and suicidal ideation in the context of numerous life stressors. Patient was however directable and agreeable to commence treatment. Patient got along well with other patients on the unit and followed unit protocol. Patient was compliant with the medications and denied any side effects throughout hospital course. Patient was started on his home medication of Effexor which has been increased to 225 mg daily to address his depression and anxiety. Patient spoke of his stressors and engaged in therapy both group and individual. Patient was also seen by medical team for history and physical exam. Throughout the course of the hospitalization patient gradually improved with regards to his mood. He also became future oriented and developed better insight and judgment. He expresses strong desire to live for himself and for his family and stated that he began to miss his children significantly. The patient also signed a release of information for his and informed this provider that his will be locking up his medications in a safe in order to facilitate him returning home. On the day of discharge, the patient is not endorsing any suicidal or homicidal ideation, intention, or plan. He denies any access to firearms or other weapons. He reports a strong desire to live for himself and for his children and his . He denies any auditory or visual hallucinations. He reports no paranoia or delusions. The patient was counseled at length on being adherent with his medications and the risks, benefits, treatment alternatives of the medications were discussed with him in detail. The patient was counseled on taking his medications and following up with his outpatient appointments. Prior to discharge, and immediately raised by social services counselor to the questions and ensure safety. Mental status exam: General Appearance: Patient appears to be stated age is alert, pleasant, and cooperative. Patient is in no acute distress and has fair hygiene and grooming Behavior: Patient is calmly seated without any agitated behavior. Speech: Patient's speech is fluent and nonpressured. Mood/Affect: Patient reports their mood is "much better", affect is congruent and euthymic to bright. Suicidality/Homicidality: Patient denies having any suicidal or homicidal ideation intent or plan. Perceptions: Patient denies any auditory or visual hallucinations. Though content/process: There is no evidence of any delusional thought content and thought process is linear and goal-directed. The patient is future oriented. Memory and concentration: AOX3, grossly intact for the purposes of this session. Can spell "WORLD" backwards correctly. Judgment and insight: Improved Vital Signs Temp 97.1 F L 02/09/21 05:09 Pulse 98 02/09/21 05:09 Resp 16 02/09/21 05:09 BP 124/65 02/09/21 05:09 Pulse Ox 96 02/08/21 08:40 Impression: Major depressive disorder, recurrent, severe Nicotine dependence Plan: -Continue with discharge today as patient has improved and stabilized psychiatrically and is not currently an imminent threat to himself and/or others. The patient will be at an elevated risk for self-harm due to his significant medical issues and numerous psychosocial stressors. -Continue medications: Effexor XR 225 mg by mouth daily for depression/anxiety -Patient was counseled on the need for medication compliance and appropriate follow-up at mental health and also primary care for medical issues. Patient verbalized understanding and agreed. -Social work to arrange for and conduct family meeting to ensure safety upon discharge and answer any questions/concerns. Social work also to arrange for patients follow up appointments for psychiatric care along with follow up with primary care provider. -Patient counseled on abstaining from recreational drugs and marijuana and alcohol. Was informed/educated on the adverse effects on their physical and mental health. Patient verbally agreed and understood. -Patient was instructed to return to the hospital or seek immediate medical care if their psychiatric or medical symptoms do worsen or reoccur. -Psychoeducation and supportive therapy provided to patient. Risks and benefits of pharmacological treatment versus the risks and benefits of nontreatment weight and discussed. Informed consent discussion held. Common side effects of psychotropics discussed such as, but not limited to headache, GI disturbance, sexual dysfunction, movement disorders, sedation, and orthostatic hypotension. Life threatening and blackbox warnings of prescribed medications also discussed. Potential risks of operating a vehicle or heavy machinery discussed with patient at length. Advised on importance of compliance and a reliable and responsible manner. Patient advised to review FDA consumer labeling of all medications prior to taking. Patient verbalized understanding of potential risks, and agrees with current treatment plan. Patient advised to medically contact physician/emergency personnel if any acute changes in condition occur. Allergies Allergy/AdvReac Type Severity Reaction Status Date / Time No Known Allergies Allergy Verified 02/07/21 11:30 Laboratory Results WBC 7.5 k/uL (3.8-10.6) 02/08/21 06:33 RBC 5.20 m/uL (4.30-5.90) 02/08/21 06:33 Hgb 16.4 gm/dL (13.0-17.5) 02/08/21 06:33 Hct 51.1 % (39.0-53.0) 02/08/21 06:33 MCV 98.4 fL (80.0-100.0) 02/08/21 06:33 MCH 31.5 pg (25.0-35.0) 02/08/21 06:33 MCHC 32.0 g/dL (31.0-37.0) 02/08/21 06:33 RDW 13.0 % (11.5-15.5) 02/08/21 06:33 Plt Count 214 k/uL (150-450) 02/08/21 06:33 MPV 7.3 02/08/21 06:33 Neutrophils % 70 % 02/08/21 06:33 Lymphocytes % 19 % 02/08/21 06:33 Monocytes % 6 % 02/08/21 06:33 Eosinophils % 3 % 02/08/21 06:33 Basophils % 0 % 02/08/21 06:33 Neutrophils # 5.3 k/uL (1.3-7.7) 02/08/21 06:33 Lymphocytes # 1.4 k/uL (1.0-4.8) 02/08/21 06:33 Monocytes # 0.4 k/uL (0-1.0) 02/08/21 06:33 Eosinophils # 0.2 k/uL (0-0.7) 02/08/21 06:33 Basophils # 0.0 k/uL (0-0.2) 02/08/21 06:33 Sodium 138 mmol/L (137-145) 02/08/21 06:33 Potassium 5.3 mmol/L (3.5-5.1) H 02/08/21 06:33 Chloride 100 mmol/L (98-107) 02/08/21 06:33 Carbon Dioxide 29 mmol/L (22-30) 02/08/21 06:33 Anion Gap 9 mmol/L 02/08/21 06:33 BUN 15 mg/dL (9-20) 02/08/21 06:33 Creatinine 1.00 mg/dL (0.66-1.25) 02/08/21 06:33 Est GFR (CKD-EPI)AfAm >90 (>60 ml/min/1.73 sqM) 02/08/21 06:33 Est GFR (CKD-EPI)NonAf 88 (>60 ml/min/1.73 sqM) 02/08/21 06:33 Glucose 126 mg/dL (74-99) H 02/08/21 06:33 POC Glucose (mg/dL) 114 mg/dL (75-99) H 02/09/21 08:01 POC Glu Finishing Lab Technician ID Mumtaz Hill 02/09/21 08:[address] Glu mg/dL 131 02/08/21 06:33 Hemoglobin A1c 6.2 % (4.0-6.0) H 02/08/21 06:33 Calcium 9.7 mg/dL (8.4-10.2) 02/08/21 06:33 Total Bilirubin 0.7 mg/dL (0.2-1.3) 02/08/21 06:33 AST 31 U/L (17-59) 02/08/21 06:33 ALT 53 U/L (4-49) H 02/08/21 06:33 Alkaline Phosphatase 142 U/L (38-126) H 02/08/21 06:33 Total Protein 7.5 g/dL (6.3-8.2) 02/08/21 06:33 Albumin 4.3 g/dL (3.5-5.0) 02/08/21 06:33 Triglycerides 207.00 mg/dL (0.00-149.00) H 02/08/21 06:33 Cholesterol 240.00 mg/dL (0.00-200.00) H 02/08/21 06:33 LDL Cholesterol, Calc 163.2 mg/dL (0.0-131.0) H 02/08/21 06:33 VLDL Cholesterol, Calc 41.40 mg/dL (5.00-40.00) H 02/08/21 06:33 HDL Cholesterol 35.40 mg/dL (40.00-60.00) L 02/08/21 06:33 Cholesterol/HDL Ratio 6.78 Ratio 02/08/21 06:33 TSH 2.280 mIU/L (0.465-4.680) 02/08/21 06:33 Urine Opiates Screen Not Detected (NotDetected) 02/07/21 11:14 Ur Oxycodone Screen Not Detected (NotDetected) 02/07/21 11:14 Urine Methadone Screen Not Detected (NotDetected) 02/07/21 11:14 Ur Propoxyphene Screen Not Detected (NotDetected) 02/07/21 11:14 Ur Barbiturates Screen Not Detected (NotDetected) 02/07/21 11:14 U Tricyclic Antidepress Not Detected (NotDetected) 02/07/21 11:14 Ur Phencyclidine Scrn Not Detected (NotDetected) 02/07/21 11:14 Ur Amphetamines Screen Not Detected (NotDetected) 02/07/21 11:14 U Methamphetamines Scrn Not Detected (NotDetected) 02/07/21 11:14 U Benzodiazepines Scrn Not Detected (NotDetected) 02/07/21 11:14 Urine Cocaine Screen Not Detected (NotDetected) 02/07/21 11:14 U Marijuana (THC) Screen Not Detected (NotDetected) 02/07/21 11:14 Coronavirus (PCR) Not Detected (Not Detectd) 02/07/21 13:45 Patient Condition at Discharge: Stable Plan - Discharge Summary Discharge Rx Participant: No New Discharge Prescriptions: New Venlafaxine HCl ER [Effexor XR] 225 mg PO HS 30 Days Continue rOPINIRole HCL [Requip] 1 mg PO HS Levothyroxine Sodium [Synthroid] 25 mcg PO HS hydroCHLOROthiazide [Hydrodiuril] 25 mg PO DAILY metFORMIN HCL [Glucophage] 500 mg PO BID amLODIPine [Norvasc] 7.5 mg PO DAILY Atorvastatin Calcium [Lipitor] 40 mg PO HS Valsartan 320 mg PO HS Multivitamins, Thera [Multivitamin (formulary)] 1 tab PO AC-SUPPER Discontinued Venlafaxine HCl ER [Effexor XR] 150 mg PO HS Discharge Medication List rOPINIRole HCL [Requip] 1 mg PO HS 09/17/18 [History] Levothyroxine Sodium [Synthroid] 25 mcg PO HS 04/29/20 [History] hydroCHLOROthiazide [Hydrodiuril] 25 mg PO DAILY 04/29/20 [History] metFORMIN HCL [Glucophage] 500 mg PO BID 11/09/20 [History] Atorvastatin Calcium [Lipitor] 40 mg PO HS 12/30/20 [History] Valsartan 320 mg PO HS 12/30/20 [History] amLODIPine [Norvasc] 7.5 mg PO DAILY 12/30/20 [History] Multivitamins, Thera [Multivitamin (formulary)] 1 tab PO AC-SUPPER 02/07/21 [History] Venlafaxine HCl ER [Effexor XR] 225 mg PO HS 30 Days 02/09/21 [Rx] Follow up Appointment(s)/Referral(s): [facility]] - 02/20/21 10:30 am (Magnus Jasso DO [Primary Care Provider] - 1-2 days Patient Instructions/Handouts: Depression (DC), Meal Planning with Diabetes Exchanges (DC), Help Prevent Suicide (DC), Type 2 Diabetes in the Older Adult (DC) Discharge Disposition: HOME SELF-CARE
--- NOTE | 2021-02-09 16:55 | P.PN ---
Progress Note - Text Progress Note Date: 02/09/21 - Chief Complaint Depressed istory of presenting complaint: This is a pleasant 50-year-old patient, follows with Dr. Nj. Chronic stable medical conditions include diabetes, GERD, hypertension, hyperlipidemia, hypothyroid, obstructive sleep apnea uses CPAP. prior cardiac catheterization that was normal. Patient is a smoker. Patient now presents to the ER with progressive symptoms of anxiety depression suicidal ideation. She seems to be progressively getting worse. Over a period of time. He has several social issues including issues at home financial issues. Even thought of taking medication overdose. Finally decided to come in. No fever no chills. No cough. Appetite is fair. No sleeping too well. February 09: Patient feeling better. Up and about. More cheerful. Ostium to follow with PCP if discharge. Oral intake fair. Review of systems: Was done for constitutional, cardiovascular, GI, pulmonary. relevant finding as above Current medications reviewed from today's electronic records Past medical history to include: Diabetes, GERD, hypertension, hyperlipidemia, hypothyroid, obstructive sleep apnea uses CPAP, depression Social history: Smoking a pack a day for close to 33 years. 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 No alcohol. Denies drugs. Family history: CAD Physical examination: VITAL SIGNS: 97.1, 98, 16, 124/65, 96% room air GENERAL: comfortable EYES: Pupils equal. Conjunctiva normal. HEENT: External appearance of nose and ears normal, oral cavity grossly normal. NECK: JVD not raised; masses not palpable. HEART: First and second heart sounds are normal; no edema. LUNGS: Respiratory rate normal; clear to auscultation. ABDOMEN: Soft, nontender, liver spleen not palpable, no masses palpable. PSYCH: Alert and oriented x3; mood and affect normal. INVESTIGATIONS, reviewed in the clinical context: WBC 7.5. Weight 16.4 platelets 214 potassium 5.3 creatinine 1.0 TSH 2.2 Coronavirus [PCR]: Not detected Assessment and plan: -Hypothyroid Synthroid 25 g a day -Essential hypertension Valsartan 320 mg daily, amlodipine 7.5 daily -Diabetes mellitus type 2 on oral hypoglycemic Metformin 5 mg twice a day. Follow Accu-Cheks -Hyperlipidemia 40 mg Lipitor at bedtime -Restless leg syndrome Requip 1 mg daily at bedtime -Morbid obesity BMI 27.8 Weight loss measures. Follow-up with PCP -Nicotine dependence, cigarette smoking Nicotine patch -Major depression, severe, recurrent Effexor XL to 25 mg daily at bedtime, Haldol when necessary Care was discussed with the patient. Follow-up with Dr. Nj upon discharge. Thank you Dr. Rice
== END 2021-02-09 13:17 | disposition home or self-care (01) | DRG 885 ==
LOC: EC 08:58 → 3MHU 15:10
PROVIDERS: ADMIT Psychiatry & Neurology Psychiatry; ATTEND Psychiatry & Neurology Psychiatry
DX: F33.2 Major depressive disorder, recurrent severe without psychotic features (principal); R45.851 Suicidal ideations; Z68.42 Body mass index [BMI] 45.0-49.9, adult; E11.9 Type 2 diabetes mellitus without complications; E66.01 Morbid (severe) obesity due to excess calories; Z20.822 Contact with and (suspected) exposure to COVID-19; F41.9 Anxiety disorder, unspecified; K21.9 Gastro-esophageal reflux disease without esophagitis; E78.5 Hyperlipidemia, unspecified; G47.33 Obstructive sleep apnea (adult) (pediatric); G25.81 Restless legs syndrome; I10 Essential (primary) hypertension; E03.9 Hypothyroidism, unspecified; F17.210 Nicotine dependence, cigarettes, uncomplicated; Z71.6 Tobacco abuse counseling; Z79.84 Long term (current) use of oral hypoglycemic drugs; Z79.890 Hormone replacement therapy; Z79.899 Other long term (current) drug therapy; Z91.5 Personal history of self-harm; Z59.9 Problem related to housing and economic circumstances, unspecified; Z98.52 Vasectomy status; Z87.39 Personal history of other diseases of the musculoskeletal system and connective tissue; Z87.81 Personal history of (healed) traumatic fracture; Z98.890 Other specified postprocedural states; Z71.3 Dietary counseling and surveillance; Z82.49 Family history of ischemic heart disease and other diseases of the circulatory system; Z81.8 Family history of other mental and behavioral disorders
CPT/HCPCS: 80053; 80061; 80306; 82075; 83036; 84443; 85025; 87635; 99285

== ENCOUNTER → 2023-07-04 | Outpatient (CLI) | payer OTHER ==
--- NOTE | 2023-07-04 12:43 | US ---
EXAMINATION TYPE: US abdomen complete DATE OF EXAM: 07/04/2023 COMPARISON: 11/05/2015 CLINICAL INDICATION: Male, 53 years old with history of R19.4 CHANGE IN BOWEL HABIT; Change in bowel habits. Patient has nausea. Abd pain that comes and goes. TECHNIQUE: Multiple sonographic images of the abdomen are obtained. FINDINGS: EXAM MEASUREMENTS: Liver Length: 17.4 cm Gallbladder Wall: 0.2 cm CBD: 0.3 cm Spleen: 11.1 cm Right Kidney: 10.3 x 5.6 x 5.3 cm Left Kidney: 10.6 x 6.0 x 5.3 cm OUTBOUND SALES AGENT NOTES: Limited visualization due to overlying bowel gas and patient body habitus Pancreas: Obscured by bowel gas Liver: Increased attenuation, difficult to penetrate. Gallbladder: wnl as best seen Evidence for sonographic Purvis's sign: No CBD: wnl Spleen: wnl Right Kidney: No hydronephrosis or masses seen as best visualized Left Kidney: No hydronephrosis or masses seen as best visualized Upper IVC: visualized portion wnl Abd Aorta: obscured by bowel gas IMPRESSION: 1. No evidence of cholelithiasis or cholecystitis. 2. Hepatic steatosis. 3. No evidence of hydronephrosis.
== END | disposition home or self-care (01) ==
LOC: RADUSWWP 06:54
PROVIDERS: ATTEND Family Medicine
DX: K76.0 Fatty (change of) liver, not elsewhere classified (principal); R19.4 Change in bowel habit; R11.0 Nausea
CPT/HCPCS: 76700